=== PATIENT | female | born 1940 | race Caucasian/White ===

== ENCOUNTER 2017-12-28 16:33 | Inpatient (IN) | payer OTHER ==
[~2017-12-28] VITALS: Ht 160 cm; Wt 78.0 kg
--- NOTE | ~2017-12-28 | HC ---
[facility] [place] [address] CONSULTATION Name: INDIO LYNN Room #: 357-P [facility] IN ..#: [id number] Admission: 12/28/17 Attend Phys: Lemuel Geronimo MD Discharge: 12/31/17 Date of : 44 Report #: [id number] THIS REPORT FOR: //name// CC: Lemuel [facility] REASON FOR CONSULTATION: Elevated creatinine. REASON FOR PRESENTATION: Abdominal pain. HISTORY OF PRESENT ILLNESS: The patient is a 77-year-old with past medical history of hypertension. She was transferred from [facility] for abdominal pain and elevated lipase. On presentation, she was found to have an elevated creatinine. She is known to have hypertension, hyperlipidemia, what was described as parathyroid disorder in her medical record. She tells me that she sees a developer support engineer from [facility] with the last name of [facility]. She is not aware of her kidney levels. She was informed that she had an advanced chronic kidney disease. She reported to chronic nonsteroidal anti-inflammatory medications usage. As I have stated, she really does not recall her kidney levels. She is currently maintained on metoprolol and amlodipine for high blood pressure. PAST MEDICAL HISTORY: 1. Chronic kidney disease. 2. Hypertension. 3. Hyperlipidemia. 4. Questionable hyperparathyroidism. MEDICATIONS: 1. Metoprolol. 2. Norvasc. 3. Atorvastatin. ALLERGIES: PENICILLIN, BENADRYL. SOCIAL HISTORY: No drug or alcohol abuse. FAMILY HISTORY: Significant for hypertension. REVIEW OF SYSTEMS: GENERAL: No fever or chills. CARDIOVASCULAR: No chest pain or palpitation. PULMONARY: No cough or hemoptysis. GASTROINTESTINAL: As per the history of present illness. GENITOURINARY: No frequency, no urgency. MUSCULOSKELETAL: Occasional arthralgias, myalgias, back pain. SKIN: No rash or ulcerations. [facility] [address] [place] [address] CONSULTATION Name: INDIO LYNN Room #: 357-P [facility]#: [id number] Admission: 12/28/17 Attend Phys: Lemuel Geronimo MD Discharge: 12/31/17 Date of : 44 Report #: [id number] PHYSICAL EXAMINATION: GENERAL: Alert, oriented, in no apparent distress. VITAL SIGNS: Pulse rate 73, blood pressure 117/67. HEAD AND NECK: No jugular venous distention, no bruit, no thyromegaly. CHEST: Clear to auscultation bilaterally. CARDIOVASCULAR: Regular with no rub. ABDOMEN: Soft with slight epigastric tenderness. LOWER EXTREMITIES: Trace edema. LABORATORY DATA: Laboratory values reviewed. Hemoglobin 9.8. Chemistry from yesterday revealed a chloride of 109, carbon dioxide of 20, BUN of 51 and a creatinine of 3.0. She had an elevated AST, ALT. Lipase was also elevated. UA with trace protein. ASSESSMENT, IMPRESSION AND PLAN: 1. Chronic kidney disease. 2. Hypertension. 3. Proteinuria. 4. Elevated liver enzyme. 5. Elevated lipase. 6. It does look like that the patient carries a diagnosis of chronic kidney disease and she sees a developer support engineer in [place]. We will try to obtain those records. 7. Initiate very simple workup. 8. GI workup in progress for her elevated liver enzymes, possible pancreatitis and gastrointestinal bleeding. 9. Continue with the gentle hydration. 10. Avoid nephrotoxins, specifically Aleve. She has been taking this for an extended period of time. Repeat labs in the morning. 11. Strict input and output. 12. Defer management of other issues to the primary team. <ELECTRONICALLY SIGNED> By: Holly Emmanuel MD 12/31/17 [id number] Holly Emmanuel MD /nt
--- NOTE | ~2017-12-28 | P ---
[facility] [place] [address] PROCEDURE REPORT Name: INDIO LYNN Room #: 357-P [facility] IN M.R.#: [id number] Admission: 12/28/17 Attend Phys: Lemuel Geronimo MD Discharge: Date of : 44 Report #: [id number] THIS REPORT FOR: //name// CC: Lemuel Payne NP BRIEF HISTORY: The patient is a 77-year-old woman with marked anemia. She has been recently treated for iron deficiency with iron supplementation. In addition, she has been taking Aleve. PREOPERATIVE DIAGNOSES: Anemia and possible gastrointestinal bleeding. POSTOPERATIVE DIAGNOSES: 1. A 3 cm sliding type hiatus hernia. 2. Mild gastritis without ulcer or bleeding. 3. 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 MEDICATIONS: Deep sedation with propofol per anesthesia. SPECIMEN: 1. Biopsy small bowel, rule out celiac disease. 2. Biopsies of stomach, rule out H. pylori. 3. Biopsies of distal esophagus, rule out More esophagus. ESTIMATED BLOOD LOSS: 3 mL. PROCEDURE: EGD with biopsy. FINDINGS: Prior to propofol sedation, procedure of upper endoscopy discussed with the patient as well as potential risks and its complications. She indicates she understands and desires to proceed. DESCRIPTION OF PROCEDURE: With the patient in left lateral decubitus position, Fuji video endoscope was inserted in the cervical esophagus under direct vision without difficulty. Examination of this organ through its entire length revealed normal esophageal mucosa down the squamocolumnar junction. She does have about a 3 cm hiatus hernia. In addition, there is a questionable short segment of More's of no more than 2 cm with gastric type mucosa within the tubular lumen of the esophagus. It was smooth and flat. No ulcers, strictures or masses were seen. Multiple biopsies were obtained. Scope was advanced in the stomach, was examined on end view as well as retroflexed views. There was patchy erythema. In spite of the fact she takes Aleve on essentially daily basis, no ulcers or erosions were seen in the stomach. No blood or bleeding was seen within the stomach. Upon retroflexion, the hiatus hernia was seen. No other abnormalities were identified. Biopsies were obtained to exclude H. pylori. The pylorus, duodenal bulb and postbulbar duodenal sweep were [address] [address] PROCEDURE REPORT Name: INDIO LYNN Room #: 357-P [facility] IN ..#: [id number] Admission: 12/28/17 Attend Phys: Lemuel Geronimo MD Discharge: Date of : 44 Report #: [id number] inspected. She had intact and normal mucosa. Due to her anemia, biopsies obtained to evaluate for celiac disease. In addition, there was a small duodenal diverticulum. It was in the periampullary region, but the papilla was outside of the diverticulum. At that point, scope was withdrawn and careful circumferential views confirmed the above findings. The patient tolerated the procedure well. DISPOSITION: The patient with anemia and black stools. I do not find evidence of a source for upper gastrointestinal bleeding. We will follow up on biopsies obtained today. Some of this may be more chronic than acute. It is noted she has inflammatory changes in her colon. I would agree with a colonoscopy, but as long as she remains stable, I think it would be best to defer that for several weeks to be done as an outpatient after her sustained inflammatory changes have resolved. Her hemoglobin is likely stable at 7.4 this morning. I will discontinue her pantoprazole drip. <ELECTRONICALLY SIGNED> By: Andre Holcomb MD 12/30/17 1158 [id number] Andre Holcomb MD /nt
--- NOTE | ~2017-12-28 | S ---
[facility] [place] [address] SURGICAL PATH RPT PROCEDURE Name: INDIO BURCIAGA Room #: 357-P DIS IN M.R.#: [id number] Admission: 12/28/17 Date of : 44 Discharge: 12/31/17 Report #: [id number] Path Case #: [id number] PATHOLOGY REPORT COLLECTION DATE: 12/30/2017 RECEIVED DATE: 01/01/2018 SUBMITTING PHYS: Dr. Andre Holcomb OTHER PHYS: Lemuel Geronimo M.D. Mrs. Guardado Americo Payne SPECIMEN(S) RECEIVED: A.Bx small bowel B.Gastric bx's C.Bx distal esophagus * * * * * * * * * * * * FINAL DIAGNOSIS: A. Bx small bowel: - Duodenal mucosa with intact villous architecture and no increase in intraepithelial lymphocytes. B. Gastric bx's: - Chronic focally active gastritis, moderate. - An H. pylori immunostain is negative (Block B1; appropriately reactive control). C. Bx distal esophagus: - Intestinal metaplasia present (More's esophagus). - Negative for dysplasia. - Columnar junctional mucosa; acute and chronically inflamed. PATHOLOGIST: Eze Haro M.D. REPORT ELECTRONICALLY SIGNED BY: Eze Haro M.D. DATE/TIME: 01/02/2018 09:18 * * * * * * * * * * * * GROSS PATHOLOGY: A. Received in formalin labeled "Indio Burciaga, BX small bowel, history anemia, rule out celiac" and consists of 6 hagen mucosal biopsies ranging in size from 0.2 cm-0.4 cm. The specimen is totally submitted as A1. B. Received in formalin labeled "Indio Burciaga, gastric BX rule out H. pylori" and consists of 5 mucosal biopsies ranging in size from 0.2 cm-0.4 cm. The specimen is totally submitted as B1. C. Received in formalin labeled "Indio Burciaga, biopsy distal esophagus rule out More's" and consists of 2 hagen mucosal biopsies each averaging 0.2 cm. The specimen is totally submitted as C1. (RICH; 01/01/2018) [address] [place] [address] SURGICAL PATH RPT PROCEDURE Name: INDIO BURCIAGA Room #: 357-P DIS IN M.R.#: [id number] Admission: 12/28/17 Date of : 44 Discharge: 12/31/17 Report #: [id number] Path Case #: [id number] CLINICAL HISTORY: Pre-op: Anemia Postop: Hiatus hernia, gastritis INITIAL CPT CODE(S): A; 86726 B; 71644, 03076 C; 16986 Professional services performed by [facility] at [address], [place] [address] Technical services performed by [facility] at [address] [place] [address], [address] [address]. [facility] [address] [place] [id number] PHONE: [phone] DIRECTOR: Sharad Payne M.D. * * * END OF REPORT * * *
[2017-12-28 18:27] VITALS: BP 138/71
[2017-12-28 19:15] VITALS: BP 125/60
[2017-12-28 19:45] LABS: ABSOLUTE NEUTROPHILS 11.7 thou/uL (1.4-8.2); BASOPHILS 0.2 % (0.0-2.0); EOSINOPHILS 0.1 % (0.0-3.0); HEMATOCRIT 29.9 % (37.0-47.0); HEMOGLOBIN 9.8 gm/dL (12.0-15.0); LYMPHOCYTES 2.9 % (24.0-44.0); MCH 30.4 pg (26.0-34.0); MCHC 32.7 g/dL (28.0-37.0); MONOCYTES 5.2 % (1.0-8.0); PLATELET COUNT 197 thou/uL (150-400); POLYS 91.6 % (36.0-66.0); RBC 3.22 mil/uL (4.20-5.00); RDW 13.8 % (10.5-14.5); WBC 12.8 thou/uL (4.0-11.0)
[2017-12-28 19:51] LABS: CALCIUM 10.9 mg/dL (8.5-10.1); POTASSIUM 4.5 mmol/L (3.5-5.1)
[2017-12-28 19:53] LABS: MAGNESIUM 1.9 mg/dL (1.8-2.4)
[2017-12-28 19:56] LABS: ALBUMIN 3.3 g/dL (3.4-5.0); TOTAL BILIRUBIN 0.7 mg/dL (<0.1-1.0); TOTAL PROTEIN 6.8 g/dL (6.4-8.2)
[2017-12-28] MEDS ORDERED: NORVASC5 MG PO (21:54)
[2017-12-28] MEDS ORDERED: Iron PO (21:57)
[2017-12-28] MEDS ORDERED: ZANTAC 150MG T150 MG PO (21:58)
[2017-12-28] MEDS ORDERED: LOPRESSOR50 PO (21:58)
[2017-12-28] MEDS ORDERED: ZOCOR40 MG PO (21:59)
[2017-12-29] VITALS (7 sets, daily range): BP systolic 90–131; BP diastolic 49–71
[2017-12-29 00:01] LABS: HEMATOCRIT 25.9 % (37.0-47.0); HEMOGLOBIN 8.6 gm/dL (12.0-15.0)
[2017-12-29 01:50] LABS: URINE BILIRUBIN NEGATIVE (Negative); URINE BLOOD NEGATIVE (Negative); URINE CLARITY CLEAR; URINE COLOR YELLOW; URINE GLUCOSE-RANDOM* NEGATIVE (Negative); URINE KETONES NEGATIVE (Negative); URINE LEUKOCYTES NEGATIVE (Negative); URINE NITRITE NEGATIVE (Negative); URINE PROTEIN (DIPSTICK) TRACE (Negative); URINE SPECIFIC GRAVITY 1.025 (1.005-1.035); URINE UROBILINOGEN 0.2 E.U./dl (0.2-1.0)
[2017-12-29 07:24] LABS: URINE CREATININE-RANDOM* 83.5 mg/dL; URINE PROTEIN-RANDOM* 55.4 mg/dL (<11.9)
[2017-12-29 07:47] LABS: ABSOLUTE NEUTROPHILS 8.9 thou/uL (1.4-8.2); BASOPHILS 0.2 % (0.0-2.0); EOSINOPHILS 0.2 % (0.0-3.0); HEMATOCRIT 23.5 % (37.0-47.0); HEMOGLOBIN 7.8 gm/dL (12.0-15.0); LYMPHOCYTES 8.8 % (24.0-44.0); MCHC 33.3 g/dL (28.0-37.0); MCV 93.1 fL (80.0-100.0); MONOCYTES 6.3 % (1.0-8.0); PLATELET COUNT 150 thou/uL (150-400); POLYS 84.5 % (36.0-66.0); RBC 2.53 mil/uL (4.20-5.00); RDW 13.6 % (10.5-14.5); WBC 10.5 thou/uL (4.0-11.0)
[2017-12-29 08:01] LABS: ALBUMIN 2.6 g/dL (3.4-5.0); CALCIUM 10.3 mg/dL (8.5-10.1); CREATININE 2.6 mg/dL (0.6-1.0); DIRECT BILIRUBIN 0.2 mg/dL (<0.1-0.3); POTASSIUM 5.1 mmol/L (3.5-5.1); TOTAL BILIRUBIN 0.5 mg/dL (<0.1-1.0); TOTAL PROTEIN 5.7 g/dL (6.4-8.2)
[2017-12-29 10:47] LABS: % SATURATION 15 % (20-39); IRON 29 ug/dL (50-170); TIBC 191 ug/dL (250-450)
[2017-12-30 03:15] LABS: HAV IgM AB (ANTI-HAV IgM) Negative (Negative); HEPATITIS B SURFACE AG Negative (Negative); HEPATITIS C VIRUS AB <0.1 (0.0-0.9)
[2017-12-30 04:02] VITALS: BP 127/73
[2017-12-30 05:18] LABS: ABSOLUTE NEUTROPHILS 6.7 thou/uL (1.4-8.2); BASOPHILS 0.2 % (0.0-2.0); EOSINOPHILS 0.6 % (0.0-3.0); HEMATOCRIT 22.1 % (37.0-47.0); HEMOGLOBIN 7.4 gm/dL (12.0-15.0); LYMPHOCYTES 9.8 % (24.0-44.0); MCH 30.9 pg (26.0-34.0); MCHC 33.3 g/dL (28.0-37.0); MCV 92.8 fL (80.0-100.0); MONOCYTES 5.5 % (1.0-8.0); PLATELET COUNT 133 thou/uL (150-400); POLYS 83.9 % (36.0-66.0); RBC 2.38 mil/uL (4.20-5.00); RDW 13.7 % (10.5-14.5)
[2017-12-30 05:32] LABS: ALBUMIN 2.4 g/dL (3.4-5.0); CALCIUM 11.1 mg/dL (8.5-10.1); CREATININE 2.1 mg/dL (0.6-1.0); DIRECT BILIRUBIN 0.1 mg/dL (<0.1-0.3); PHOSPHORUS 2.8 mg/dL (2.5-4.9); TOTAL BILIRUBIN 0.4 mg/dL (<0.1-1.0); TOTAL PROTEIN 5.6 g/dL (6.4-8.2)
[2017-12-30 07:23] VITALS: BP 117/100
[2017-12-30 11:38] VITALS: BP 113/58
[2017-12-30 16:10] VITALS: BP 129/68
[2017-12-30 19:50] VITALS: BP 141/76
[2017-12-31 03:56] LABS: ABSOLUTE NEUTROPHILS 4.1 thou/uL (1.4-8.2); BASOPHILS 0.2 % (0.0-2.0); EOSINOPHILS 1.3 % (0.0-3.0); HEMATOCRIT 22.1 % (37.0-47.0); HEMOGLOBIN 7.4 gm/dL (12.0-15.0); LYMPHOCYTES 11.6 % (24.0-44.0); MCH 30.8 pg (26.0-34.0); MCHC 33.4 g/dL (28.0-37.0); MCV 92.1 fL (80.0-100.0); MONOCYTES 5.8 % (1.0-8.0); PLATELET COUNT 136 thou/uL (150-400); POLYS 81.1 % (36.0-66.0); RDW 13.8 % (10.5-14.5); WBC 5.1 thou/uL (4.0-11.0)
[2017-12-31 04:00] VITALS: BP 143/75
[2017-12-31 04:13] LABS: ALBUMIN 2.5 g/dL (3.4-5.0); CALCIUM 11.6 mg/dL (8.5-10.1); CREATININE 1.9 mg/dL (0.6-1.0); POTASSIUM 4.4 mmol/L (3.5-5.1); TOTAL BILIRUBIN 0.2 mg/dL (<0.1-1.0); TOTAL PROTEIN 5.9 g/dL (6.4-8.2)
[2017-12-31 06:18] LABS: CALCIUM 11.6 mg/dL (8.5-10.1); CREATININE 1.9 mg/dL (0.6-1.0)
[2017-12-31 07:45] VITALS: BP 135/79
[2017-12-31] MEDS ORDERED: PROTONIX40 M1 PO (08:57)
[2017-12-31] MEDS ORDERED: FLAGYL500 MG PO (08:57)
[2017-12-31] MEDS ORDERED: LEVAQUIN 500 M500 M2 PO (08:57)
[2017-12-31 09:23] VITALS: BP 135/79
[2017-12-31 12:09] LABS: IgA 232 mg/dL (64-422); IgG 777 mg/dL (700-1600); IgM 39 mg/dL (26-217)
[2017-12-31 14:06] LABS: CERULOPLASMIN 26.1 mg/dL (19.0-39.0)
[2018-01-01 15:10] LABS: KAPPA FREE LIGHT CHAINS 31.3 mg/L (3.3-19.4); KAPPA/LAMBDA RATIO 1.61 (0.26-1.65); LAMBDA FREE LIGHT CHAINS 19.5 mg/L (5.7-26.3)
[2018-01-03 08:08] LABS: GLOBULIN TOTAL 2.4 g/dL (2.2-3.9); M-SPIKE Not Observed g/dL (Not Observed)
== END 2017-12-31 11:08 | disposition home or self-care (01) | DRG 393 ==
LOC: 3W 16:33
PROVIDERS: Hospitalist; Nurse Practitioner
PROC: 0DB38ZX Excision of Lower Esophagus, Via Natural or Artificial Opening Endoscopic, Diagnostic (ICD-10-PCS; principal; 2017-12-30)
PROC: 0DB88ZX Excision of Small Intestine, Via Natural or Artificial Opening Endoscopic, Diagnostic (ICD-10-PCS; 2017-12-30)
PROC: 0DB68ZX Excision of Stomach, Via Natural or Artificial Opening Endoscopic, Diagnostic (ICD-10-PCS; 2017-12-30)
DX: K55.8 Other vascular disorders of intestine (principal); K85.90 Acute pancreatitis without necrosis or infection, unspecified; N17.9 Acute kidney failure, unspecified; A09 Infectious gastroenteritis and colitis, unspecified; E78.5 Hyperlipidemia, unspecified; H26.9 Unspecified cataract; H54.61 Unqualified visual loss, right eye, normal vision left eye; M19.90 Unspecified osteoarthritis, unspecified site; I12.9 Hypertensive chronic kidney disease with stage 1 through stage 4 chronic kidney disease, or unspecified chronic kidney disease; N18.9 Chronic kidney disease, unspecified; R80.9 Proteinuria, unspecified; K44.9 Diaphragmatic hernia without obstruction or gangrene; K29.70 Gastritis, unspecified, without bleeding; E83.52 Hypercalcemia; D69.6 Thrombocytopenia, unspecified; D50.9 Iron deficiency anemia, unspecified; Z88.0 Allergy status to penicillin; Z88.8 Allergy status to other drugs, medicaments and biological substances; Z98.51 Tubal ligation status; Z90.49 Acquired absence of other specified parts of digestive tract; Z79.899 Other long term (current) drug therapy; Z82.49 Family history of ischemic heart disease and other diseases of the circulatory system
CPT/HCPCS: 10879; 62110

== ENCOUNTER 2019-01-12 12:58 | Inpatient (IN) | payer OTHER ==
[~2019-01-12] VITALS: Ht 160 cm; Wt 76.0 kg
[2019-01-12 12:30] VITALS: BP 146/74
[~2019-01-12 12:58] MED LIST: FLAGYL500 MG PO; Iron PO; LEVAQUIN 500 M500 M2 PO; LOPRESSOR50 PO; NORVASC5 MG PO; PROTONIX40 M1 PO; ZANTAC 150MG T150 MG PO; ZOCOR40 MG PO
[2019-01-12] MEDS ORDERED: TYLENOL EXTRA500 MG PO (13:24)
[2019-01-12] MEDS ORDERED: VITAMIN D-32000 UNIT PO (13:26)
[2019-01-12] MEDS ORDERED: FERREX 150150 MG PO (13:27)
[2019-01-12 15:13] LABS: HEMATOCRIT 32.1 % (37.0-47.0); MCH 31.8 pg (26.0-34.0); MCHC 34.1 g/dL (28.0-37.0); MCV 93.1 fL (80.0-100.0); RBC 3.45 mil/uL (4.20-5.00); WBC 7.5 thou/uL (4.0-11.0)
[2019-01-12 15:22] LABS: CREATININE 1.8 mg/dL (0.6-1.0); POTASSIUM 3.7 mmol/L (3.5-5.1)
[2019-01-12 15:27] LABS: ALBUMIN 3.7 g/dL (3.4-5.0); TOTAL BILIRUBIN 0.3 mg/dL (<0.1-1.0); TOTAL PROTEIN 7.2 g/dL (6.4-8.2)
[2019-01-12 17:02] VITALS: BP 141/78
[2019-01-12 20:30] VITALS: BP 127/72
[2019-01-13 04:00] VITALS: BP 131/77
[2019-01-13 06:24] LABS: ABSOLUTE NEUTROPHILS 3.3 thou/uL (1.4-8.2); BASOPHILS 0.3 % (0.0-2.0); EOSINOPHILS 3.3 % (0.0-3.0); HEMATOCRIT 29.3 % (37.0-47.0); HEMOGLOBIN 9.7 gm/dL (12.0-15.0); LYMPHOCYTES 16.9 % (24.0-44.0); MCHC 33.1 g/dL (28.0-37.0); MCV 93.9 fL (80.0-100.0); MONOCYTES 8.4 % (1.0-8.0); PLATELET COUNT 163 thou/uL (150-400); POLYS 71.1 % (36.0-66.0); RBC 3.11 mil/uL (4.20-5.00); RDW 12.8 % (10.5-14.5); WBC 4.6 thou/uL (4.0-11.0)
[2019-01-13 06:39] LABS: ALBUMIN 3.4 g/dL (3.4-5.0); CALCIUM 8.9 mg/dL (8.5-10.1); CREATININE 1.6 mg/dL (0.6-1.0); POTASSIUM 4.5 mmol/L (3.5-5.1); TOTAL BILIRUBIN 0.4 mg/dL (<0.1-1.0); TOTAL PROTEIN 6.6 g/dL (6.4-8.2)
--- NOTE | 2019-01-13 07:14 | NUR ---
ADMISSION NOTED; DIRECT ADMIT FROM [facility]. ORIENTED TO ROOM AND FACILITY ROUTINE, CALL LIGHT AND BATHROOM PROTOCOL. ENCOURAGED TO CALL WITH TRASFERS TO BATHROOM. SHE IS ALERT ORIENTED X4. DOES NOT SEEM TO BE IN PAIN INITIALLY BUT THEN EVENTUALLY SHE ABDOMINAL PAIN OF ABOUT A 10. SHE WILL BE KEPT NPO UNTIL DR YATES REVIEWS IF SHE WILL BE HAVE SURGERY OR NOT. UPDATED FAMILY ABOUT STATUS.
--- NOTE | 2019-01-13 07:40 | NUR ---
ASSUMED CARE AT 1900, ASSESSMENT COMPLETED. PT C/O GENERALIZED ABD PAIN THAT RADIATES TO BACK, ABD IS DISTENDED AND FIRM WITH HYPOACTIVE BOWEL SOUNDS THAT ARE MARGINALLY MORE ACTIVE IN UPPER QUADS. DENIES NAUSEA OR SOB. PT REQUESTED PAIN MEDS ALMOST EVERY FOUR HOURS, PER PRN SCHEDULE. ABLE TO SLEEP MOST OF THE NIGHT. SR WITH 1ST DEG BLOCK ON TELE, HR IN 70'S. C/O BURNING IN IV IN LEFT HAND, SLIGHT SWELLING NOTED; DC-D IV AND RESTARTED IV IN LEFT FOREARM, FLUIDS AND ABX RESUMED. NO OTHER CONCERNS, SHIFT REPORT GIVEN AT 0700.
[2019-01-13 08:12] VITALS: BP 133/68
[2019-01-13 12:24] VITALS: BP 146/75
[2019-01-13 15:49] VITALS: BP 153/70
--- NOTE | 2019-01-13 17:55 | NUR ---
PT ALERT AND ORIENTED TIMES FOUR. VSS, 93%RA, SR ON TELE, IVF INFUSING PER ORDER. C/O ABD PAIN PRN PAIN MEDIACTIONS GIVEN WITH GOOD RELEIF. PT DENIES ANY N/V. PT UP TO BSC WITH STANDBY ASSIST. FAMILY AT BEDSIDE THIS AFTERNOON. PT SLOWLY PROGRESSING TOWRADS POC GOALS.
[2019-01-13 19:49] VITALS: BP 114/64
[2019-01-14 04:36] VITALS: BP 124/59
[2019-01-14 05:22] LABS: HEMATOCRIT 27.8 % (37.0-47.0); HEMOGLOBIN 9.1 gm/dL (12.0-15.0); MCH 30.5 pg (26.0-34.0); MCHC 32.5 g/dL (28.0-37.0); MCV 93.7 fL (80.0-100.0); RBC 2.97 mil/uL (4.20-5.00); RDW 12.8 % (10.5-14.5); WBC 4.7 thou/uL (4.0-11.0)
[2019-01-14 05:34] LABS: CALCIUM 8.6 mg/dL (8.5-10.1); CREATININE 1.8 mg/dL (0.6-1.0); POTASSIUM 4.9 mmol/L (3.5-5.1)
--- NOTE | 2019-01-14 06:12 | NUR ---
FOLLOWING POC WITH KEEPING PT NPO. IVF AND IVPB ANTIBIOTICS PER POC. PT COMPLAINS OF ABDOMINAL PAIN. IV MORPHINE GIVEN 2X OVER SHIFT. PT STATES SHE IS NOT HAVING ANY N/V. VSS AND CONTINUING HOURLY ROUNDING.
[2019-01-14 07:53] VITALS: BP 118/65
--- NOTE | 2019-01-14 10:34 | NUR ---
INITIAL ASSESSMENT: SW reviewed chart and spoke with nursing. Pt was admitted from home. Pt to have CT scan today. SW met with pt at bedside. Introduced role of SW. Pt is alert/orientated x 4. Pt reports she lives at home with her in [place]. Prior to admission, pt was independent with ADLs. No use of DME. No hx of HH services or SNF/Rehab placement. Pt's PCP is Debby Payne, who is a nurse practitioner. Pt is currently on O2 and was not on O2 prior to admission. Plan is for pt to d/c home when medically stable. SW is following to assist as needed with discharge planning.
[2019-01-14 12:25] VITALS: BP 122/74
[2019-01-14 16:07] VITALS: BP 119/63
[2019-01-14 19:45] VITALS: BP 117/63
--- NOTE | 2019-01-14 20:21 | NUR ---
PATIENT REMAINS NPO SHE CONT TO HAVE ABDOMINAL PAIN. SHE ONLY ASK FOR PAIN MEDICATION ONCE THROUGH THE SHIFT. SHE IS ALERT ORIENTED X4. CONT OF BOWEL AND BLADDER.
[2019-01-15 04:27] VITALS: BP 113/69
--- NOTE | 2019-01-15 05:28 | NUR ---
PATIENT IS ALERT AND ORIENTED. PATIENT IS SBA TO THE BSC. PATIENT RECIVED TYLENOL TWICE FOR TEMPATURE. PATIENT IS ON 2L NC. PATIENTS LBM WAS THE 16TH. PATINET IS NPO. NO N/V/D. PATIENT IS RESTING COMFORTABLEY IN BED. WCM. PATIENT IS PROGRESSING TO GOALS
[2019-01-15 07:25] VITALS: BP 130/62
[2019-01-15 11:11] LABS: ABSOLUTE NEUTROPHILS 2.8 thou/uL (1.4-8.2); BASOPHILS 0.2 % (0.0-2.0); EOSINOPHILS 3.3 % (0.0-3.0); HEMATOCRIT 28.8 % (37.0-47.0); HEMOGLOBIN 9.9 gm/dL (12.0-15.0); LYMPHOCYTES 10.9 % (24.0-44.0); MCH 31.9 pg (26.0-34.0); MCHC 34.3 g/dL (28.0-37.0); MCV 92.9 fL (80.0-100.0); MONOCYTES 8.5 % (1.0-8.0); PLATELET COUNT 132 thou/uL (150-400); POLYS 77.1 % (36.0-66.0); WBC 3.7 thou/uL (4.0-11.0)
[2019-01-15 11:23] LABS: CALCIUM 9.2 mg/dL (8.5-10.1); CREATININE 1.6 mg/dL (0.6-1.0); POTASSIUM 4.2 mmol/L (3.5-5.1)
[2019-01-15 12:40] VITALS: BP 128/64
[2019-01-15 16:45] VITALS: BP 123/66
--- NOTE | 2019-01-15 17:05 | NUR ---
SW reviewed chart and spoke with attending physician. Pt to have colonoscopy later this week. Plan is for pt to d/c home when medically stable. SW is following to assist as needed with discharge planning.
--- NOTE | 2019-01-15 17:30 | NUR ---
PT ASSESSED AT START OF SHIFT. STARTED ON CLEAR LIQUIDS AND DOING WELL. AMBULATED W/ THERAPY IN HALLS. GI . PLANNING ON COLONOSCOPY THIS ADMISSION. REPORT GIVEN TO SICU RN AND PT TO BE TRANSFERRED TO 221
[2019-01-15 18:53] VITALS: BP 124/74
--- NOTE | 2019-01-16 05:04 | NUR ---
PATIENT ALERT AND ORIENTED X4. UP TO BATHROOM WITH SBA. STEADY ON FEET. SHE FELT LIKE SHE MIGHT HAVE A FEVER, TOOK TEMP AND IT WAS 98.7. C/O PAIN IN ABD, MORPHINE IVP WAS GIVEN. SAYS SHE HAS HEARD BAD THINGS ABOUT VICODINAND WAS AFRAID TO TAKE IT. SHE ALSO HAD A DUEÑAS SO TYLENOL WAS GIVEN. IS BLIND IN R EYE. DENIES N/V. SLEPT MOST OF NIGHT.
[2019-01-16 06:23] LABS: HEMOGLOBIN 9.1 gm/dL (12.0-15.0); MCH 31.1 pg (26.0-34.0); MCHC 33.8 g/dL (28.0-37.0); MCV 92.2 fL (80.0-100.0); RBC 2.93 mil/uL (4.20-5.00); RDW 12.4 % (10.5-14.5); WBC 3.5 thou/uL (4.0-11.0)
[2019-01-16 08:06] VITALS: BP 150/85
--- NOTE | 2019-01-16 11:56 | NUR ---
SW reviewed chart and spoke with nursing and attending physician. Pt [facility] and is progressing towards goals for discharge. Colonoscopy planned for Monday per GI. PT/OT working with pt. Plan is for pt to discharge home when medically stable. DEV is following to assist as needed with discharge planning.
[2019-01-16 17:58] VITALS: BP 131/80
--- NOTE | 2019-01-16 19:32 | NUR ---
ASSUMED PT CARE AT 0700H. PT A&O X4. PT STATES PAIN ON L ABD WITH RELIEF FROM MED AT /10. PT ADVANCED DIET TO SOFT. PT TOLERATES MEALS. PT THIS EVENING STATED N/V. PT STATED RELIEF AFTER VOMITING. PT SCHEDULED FOR BOWEL PREP TOMORROW 01/17/19 AT NOON AND RESUME CLEAR LQ DIET. PT SCHEDULED Monday01/18/19 FOR COLONOSCOPY. PT AMBULATES ON STAND BY ASSIST. PT L FOREARM IV C/D/I. PT INFUSING FLUIDS CONT. PT STATES CONTROL LOW BACK PAIN FROM LIDOCAINE PATCH. PT CALLS APPROPRIATELY AND CONTINUES TO BE MONITORED FOR SAFETY.
[2019-01-16 20:21] VITALS: BP 132/73
--- NOTE | 2019-01-17 04:45 | NUR ---
PT ALERT/ORIENTED X4, UP WITH STAND BY ASSIST, IV FLUID AND IV ANTIBIOTICS TO LEFT FOREARM, ON ROOM AIR, DENIES PAIN, LIDODERM PATCH REMOVED, SKIN INTACT, NO BM PASSED, PT REPORTED PASSING GAS, FOR COLONOSCOPY TOMORROW, AWARE SHE WILL BE ON CLEAR LIQUID DIET TODAY, HOURLY ROUNDING, MONITORED.,
[2019-01-17 09:01] VITALS: BP 145/82
--- NOTE | 2019-01-17 09:07 | NUR ---
ASSUMED PT CARE AT 0700. ASSESSMENT COMPLETED AND IS CHARTED. VSS. PT REPORTS SOME NAUSEA/VOMITTING LAST NIGHT BUT BELIEVES IT WAS THE FOOD. DENIES PAIN AT THIS TIME. PT IS AWAKE, ALERT/ORIENTED X4, SITTING UP ON SIDE OF BED. NO NEW CONCERNS OR COMPLAINTS AT THIS TIME. WILL BEGIN BOWEL PREP AT NOON ORDERED. WILL CONTINUE WITH CURRENT CARE.
[2019-01-17 09:29] LABS: HEMATOCRIT 30.4 % (37.0-47.0); HEMOGLOBIN 10.1 gm/dL (12.0-15.0); MCH 30.9 pg (26.0-34.0); MCHC 33.3 g/dL (28.0-37.0); MCV 92.8 fL (80.0-100.0); RBC 3.27 mil/uL (4.20-5.00); RDW 12.7 % (10.5-14.5); WBC 3.1 thou/uL (4.0-11.0)
[2019-01-17 09:44] LABS: CALCIUM 9.3 mg/dL (8.5-10.1); CREATININE 1.4 mg/dL (0.6-1.0); MAGNESIUM 1.8 mg/dL (1.8-2.4); POTASSIUM 4.1 mmol/L (3.5-5.1)
--- NOTE | 2019-01-17 13:50 | NUR ---
PT DOING WELL THIS SHIFT. WALKED LYMAN WITH THERAPY AND TOLERATED WELL. STARTED PT ON MIRALAX BOWEL PREP. BEDSIDE COMMODE PROVIDED. NO NEW CONCERNS AT THIS TIME. WILL CONTINUE CURRENT CARE AND BOWEL PREP.
[2019-01-17 18:54] VITALS: BP 117/65
--- NOTE | 2019-01-18 01:17 | NUR ---
ASSUMED PT CARE 1900. PT ALERT AND ORIENTED. REASSESSMENT COMPLETED. PT REPORTS NAUSEA/VOMITING X3. NAUSEA RELEIVED WITH MEDICATION. UNABLE TO COMPLETE BOWEL PREP DUE TO N/V, LAST OBSERVED STOOL COMPLETELY LIQUID. PT COMPLAINS OF ABDOMINAL PAIN AND BACK PAIN, CONTROLED WITH MEDICATION. IV DRESSING C/D/I, NO SIGNS OF INFILTRATION. PT PROVIDED WITH WET WASH CLOTH OVER FOREHEAD. CONTINUING TO MONITOR. CALL LIGHT AND PERSONAL BELONIGNS WITHIN REACH. WILL CONTINUE POC UNTIL EOS.
[2019-01-18 06:55] LABS: HEMATOCRIT 29.6 % (37.0-47.0); HEMOGLOBIN 9.7 gm/dL (12.0-15.0); MCH 30.4 pg (26.0-34.0); MCHC 32.9 g/dL (28.0-37.0); MCV 92.5 fL (80.0-100.0); RBC 3.2 mil/uL (4.20-5.00); WBC 3.7 thou/uL (4.0-11.0)
[2019-01-18 07:41] LABS: CALCIUM 8.8 mg/dL (8.5-10.1); CREATININE 1.3 mg/dL (0.6-1.0); MAGNESIUM 1.6 mg/dL (1.8-2.4); POTASSIUM 3.6 mmol/L (3.5-5.1)
[2019-01-18 09:00] VITALS: BP 139/79
--- NOTE | 2019-01-18 10:02 | NUR ---
ASSUMED PT CARE AT 0700. ASSESSMENT COMPLETED AND IS CHARTED. PT HAD ROUGH NIGHT WITH NAUSEA/VOMITTING DURING BOWEL PREP. PT DENIES PAIN OR NAUSEA AT THIS TIME. RESTING QUIETLY IN BED. STOOL IS LIQUID, BLACK WITH FLECKS OF STOOL. PT UNABLE TO FINISH PREP LAST NIGHT, PRE-OP NOTIFIED. VITAL SIGNS ARE STABLE. PT IS ALERT/ORIENTED X4. AWAITING COLONOSCOPY AND WILL CONTINUE WITH CURRENT CARE.
--- NOTE | 2019-01-18 10:26 | NUR ---
Nutrition: pt admit with abdominal pain, N/V, colitis with pneumatosis of cecum. NPO/liquids several days over admit, tolerated soft foods one day. Now NPO for colonscopy. Pt reports usual appetite recently and usually eats smaller more frequent meals. No significant weight changes recently reported. Request new weight, no weight since admit. Follow for timely diet advancement.
--- NOTE | 2019-01-18 10:54 | NUR ---
PT TRANSFERRED TO ENDOSCOPY FOR COLONOSCOPY ACCOMPANIED BY PRE-OP STAFF AND SON.
--- NOTE | 2019-01-18 10:55 | NUR ---
SW reviewed chart and spoke with nursing and attending physician. Pt is currently off the unit having colonoscopy. Plan is for pt to return home when medically stable. No SW needs identified at this time, but is available to assist should needs arise.
--- NOTE | 2019-01-18 14:21 | NUR ---
RECEIVED PT BACK FROM ENDOSCOPY. VSS. PT AWAKE, ALERT/ORIENTED X4. PT ATTEMPTING FULL LIQUID DIET, STATES SHE ISN'T VERY HUNGRY. IVF STARTED PREVIOUSLY ORDERED. WILL CONTINUE WITH CURRENT CARE.
[2019-01-18 14:23] VITALS: BP 167/95
[2019-01-18 19:33] VITALS: BP 131/69
--- NOTE | 2019-01-19 02:43 | NUR ---
A/O, calm and cooperative; c/o nausea, no vomitting, medication given and worked; IVF continues; c/o pain in abdomen, back and legs, pain medication given and worked; vss, afebrile; lab reviewed. Patient lying in bed with eyes closed, will keep monitoring.
[2019-01-19 07:11] VITALS: BP 122/58
--- NOTE | 2019-01-19 13:10 | NUR ---
ASSUMED CARE OF PATIENT THIS MORNING. PATIENT IS A&0X4. SHE IS UP AD AURA. CLEAR BREATH SOUNDS, REGULAR HEART RHYTHM, NO COUGH. LAST BOWEL MOVEMENT WAS YESTERDAY. SHE HAD SOME NAUSEA AND VOMITING. ZOFRAN WAS GIVEN AT 0845 AND PATIENT STILL HAD SOME NAUSEA. DR. LOZOYA LATER WROTE AN ORDER FOR COMPAZINE TO BE GIVEN FOR FURTHER NAUSEA/VOMITING. PATIENT WAS ORIGINALLY ON FULL LIQUIDS AND DR. DELGADO CHANGED HER DIET TO NPO. IF FURTHER NAUSEA OR VOMITING OCCURS HE WANTS AN NG TUBE TO BE INSERTED TO HELP DECOMPRESS THE PATIENTS ABDOMEN. SURGERY WILL POSSIBLY BE SCHEDULED FOR NEXT MONDAY. SHE LATER HAD SOME PAIN RATED 7/10 AND GIVEN DILAUDID, WHEN REASSESSED SHE WAS SLEEPING. PATIENT IS CURRENTLY RESTING IN BED WITH CALL LIGHT WITHIN REACH. SHE CALLS OUT APPROPRIATELY FOR ASSISTANCE.
--- NOTE | 2019-01-19 16:18 | NUR ---
PATIENTS D5 1/2 NS KCL 20 MEQ/1000ML DC'D AND CHANGED TO PPN 1000ML @ 80ML/HR.
[2019-01-19 19:35] VITALS: BP 122/74
--- NOTE | 2019-01-20 06:26 | NUR ---
Pt a/o x 4. RA. VSS. No N/V reported. C/o LLQ abdominal pain x 1, pain med given per order. Up with standby as needed. Pt resting in bed comfortably with eyes closed at this time. No apparent distress noted. Fall precautions maintained. Call light within reach. Will continue to monitor.
[2019-01-20 07:07] LABS: HEMATOCRIT 27.3 % (37.0-47.0); HEMOGLOBIN 9.1 gm/dL (12.0-15.0); MCH 30.6 pg (26.0-34.0); MCHC 33.2 g/dL (28.0-37.0); MCV 92.2 fL (80.0-100.0); RBC 2.96 mil/uL (4.20-5.00); RDW 12.6 % (10.5-14.5); WBC 3.6 thou/uL (4.0-11.0)
[2019-01-20 07:55] VITALS: BP 145/61
--- NOTE | 2019-01-20 10:04 | NUR ---
PATIENT CARE WAS ASSUMED AT 0715.PATIENT IS ALERT AND ORIENTED X4.PATIENT IS RESTING IN BED, WITH IV FLUIDS INFUSING.PT IS CURRENTLY NPO TO HELP WITH DECOMPRESSION.PATIENT HAS HAD NAUSEA/VOMITING YESTERDAY BUT HAS NO COMPLAINS OF ANY TODAY.NO PO MEDS WERE GIVEN THIS MORNING.PT WAS CONCERN ABOUT WHEN SHE MAY BE HAVING HER SURGERY.PT HAS CALL LIGHT, PHONE, AND PERSONAL BELONGINGS WITHIN REACH.
[2019-01-20 19:30] VITALS: BP 149/72
[2019-01-21 06:29] LABS: HEMATOCRIT 27.8 % (37.0-47.0); HEMOGLOBIN 9.6 gm/dL (12.0-15.0); MCH 31.6 pg (26.0-34.0); MCHC 34.4 g/dL (28.0-37.0); RBC 3.03 mil/uL (4.20-5.00); RDW 12.6 % (10.5-14.5); WBC 4.5 thou/uL (4.0-11.0)
[2019-01-21 06:30] LABS: CALCIUM 9.2 mg/dL (8.5-10.1); CREATININE 1.3 mg/dL (0.6-1.0); POTASSIUM 4.9 mmol/L (3.5-5.1)
[2019-01-21 07:30] VITALS: BP 113/54
--- NOTE | 2019-01-21 10:22 | NUR ---
Nutrition: REC consider adding 250 mL 20% lipids daily to current PPN order. Will meet 70% kcal needs, 100% protein needs. RD to monitor.
--- NOTE | 2019-01-21 13:12 | NUR ---
ASSUMED CARE OF PATIENT THIS MORNING. PATIENT IS A&OX4. SHE IS UP AD AURA. SHE HAS PPN RUNNING AT 80ML/HR. SHE IS ON A CLEAR LIQUID DIET AND TOLERATING WELL W/NO NAUSEA OR VOMITING. PHYSICIAN STARTED PATIENT ON A CLEAR LIQUID SUPPLEMENT WELL. SHE DOES NOT COMPLAIN OF ANY PAIN. IV IN THE L. FOREARM INFILTRATED THIS MORNING AND A NEW ONE WAS STARTED ON THE L. AC. PATIENT WILL HAVE NO BOWEL PREP, SURGERY WILL POSSIBLY BE SCHEDULED FOR PATIENT ON MONDAY. PATIENT HAS HAD SMALL BOWEL MOVEMENTS AND STILL PASSING FLATUS. ABDOMEN IS SOFT AND ROUND. PATIENT CALLS OUT APPROPRIATELY FOR NEEDED ASSISTANCE. CALL LIGHT WITHIN REACH. SHE IS CURRENTLY RESTING IN BED.
[2019-01-21 18:48] VITALS: BP 130/68
[2019-01-21 22:23] VITALS: BP 130/68
--- NOTE | 2019-01-22 04:42 | NUR ---
Patient remains A&Ox4; swallows meds whole w/o difficulty. Remains cont. B&B; ambulates independenyl w/ steady gait. SL noted to LAC; infusing PPN @ 80mlhr w/o difficulty. Last BM 01/21/2019, per pt. Remains on clear liquid diet. No c/o N/V. Patine denies pain or discomfort. No s/s of acute distress noted. PO fluids encouraged. Patient in bed w/ call light/desired belongings within reach. Will continue to monitor.
[2019-01-22 09:00] VITALS: BP 113/54
--- NOTE | 2019-01-22 10:35 | NUR ---
ASSUMED PT CARE AT 0700. ASSESSMENT COMPLETED AND IS CHARTED. VSS. PT IS AWAKE, ALERT/ORIENTED X4. DENIES PAIN OR NAUSEA AT THIS TIME. TOLERATING CLEAR LIQUIDS WELL. PPN INFUSING TO LEFT AC IV SITE. SITE IS ASYMPTOMATIC. WILL CONTINUE WITH CURRENT CARE.
--- NOTE | 2019-01-22 17:58 | NUR ---
PT DID WELL THIS SHIFT. TOLERATING CLEAR LIQUIDS AND MAG CITRATE WELL. NO NAUSEA/VOMITTING. PAIN HAS BEEN WELL CONTROLLED WITHOUT MEDS. LAST BM WAS LOOSE, SMALL AND BLACK. PPN STILL INFUSING TO LEFT AC SITE. WILL CONTINUE WITH CURRENT CARE AND MAKE NPO AT MIDNIGHT.
[2019-01-22 19:15] VITALS: BP 122/72
[2019-01-22 21:10] VITALS: BP 122/72
[2019-01-23] VITALS (9 sets, daily range): BP systolic 112–154; BP diastolic 63–89
--- NOTE | 2019-01-23 03:40 | NUR ---
Patient remains A&Ox4; Swallows meds whole w/o difficulty. Remains cont. B&B. Ambulates independently. IV noted to L wrist; infusing PPN w/o difficulty. Abd. soft/nontender. Patient remains NPO/on bowel prep for pending surgery. Loose stools x3 noted. Lidoderm patch noted to lower back.Patient denies pain or discomfort. No s/s of acute distress noted. Patient asleep in bed w/ call light/desired belongings within reach. Will continue to monitor.
[2019-01-23 05:52] LABS: HEMATOCRIT 28.4 % (37.0-47.0); HEMOGLOBIN 9.4 gm/dL (12.0-15.0); MCH 30.7 pg (26.0-34.0); MCHC 33.1 g/dL (28.0-37.0); MCV 92.8 fL (80.0-100.0); RBC 3.06 mil/uL (4.20-5.00); RDW 12.5 % (10.5-14.5); WBC 4.8 thou/uL (4.0-11.0)
[2019-01-23 06:02] LABS: ALBUMIN 3.1 g/dL (3.4-5.0); CALCIUM 8.9 mg/dL (8.5-10.1); CREATININE 1.5 mg/dL (0.6-1.0); POTASSIUM 4.4 mmol/L (3.5-5.1); TOTAL BILIRUBIN 0.3 mg/dL (<0.1-1.0); TOTAL PROTEIN 6.4 g/dL (6.4-8.2)
--- NOTE | 2019-01-23 08:45 | HC ---
[facility] [place] [address] CONSULTATION Name: INDIO LYNN Room #: 221-P ADM IN M.R.#: [id number] Admission: 01/12/19 ������������������ Attend Phys: Deangelo Kim MD Discharge: ������������������ Date of : 44 Report #: [id number] THIS REPORT FOR: //name// CC: Deangelo Jensen MD [facility] Abner Maldonado MD DATE OF SERVICE: 01/13/2019 HISTORY OF PRESENT ILLNESS: The patient is a 78-year-old female who began having abdominal pain approximately a week ago, became progressively more significant. She was evaluated at [facility] and had a CT scan of the abdomen that showed pneumatosis involving her cecum. She has never had a colonoscopy. She denies any blood in her stools, although she does report black stools; however, she has been on iron. Supposedly, she has had a history of anemia for 2 years. No previous history of GI bleed that she is aware of. No previous history of upper endoscopy. She denies any nausea or vomiting. Her weight has been stable. She denies any bright red blood per rectum. She denies any diarrhea or constipation in general. There is no family history of colon cancer. The patient was transferred to [facility] for further evaluation and Dr. Maldonado was following. A repeat CT scan was performed here yesterday. This again showing pneumatosis involving the proximal colon from the level of the cecum to the proximal transverse colon without significant pericolonic soft tissue stranding. There is dilation of the colon; however, it is less degree of distention compared to the previous CT scan. There is also concern for a short segment of stricture or mass at the level of the distal descending colon and proximal sigmoid colon. The patient is currently afebrile. Her white count is normal at 4.6 and her lactic acid level was normal at 0.9. She describes a constant type of pain that is low. She states this is approximately 7-9/10 scale. She has now been started on IV antibiotics. She is passing gas. Her last bowel movement was yesterday and she described it as small. She denies any chest pain or shortness of breath currently. PAST MEDICAL HISTORY: Hypertension, hyperparathyroidism, had a parathyroidectomy in 2018, previous cataract surgery, tubal ligation, history of arthritis and she is blind in the right eye. MEDICATIONS ON ADMISSION: Norvasc, Lopressor, Zocor, Tylenol, vitamin D and iron. REVIEW OF SYSTEMS: As per HPI. FAMILY HISTORY: Negative for colon cancer or inflammatory bowel disease. SOCIAL HISTORY: She denies any tobacco use. She denies any alcohol use. [address] [address] CONSULTATION Name: INDIO LYNN Room #: 221-P [facility] IN M.R.#: [id number] Admission: 01/12/19 ������������������ Attend Phys: Deangelo Kim MD Discharge: ������������������ Date of : 44 Report #: [id number] PHYSICAL EXAMINATION: VITAL SIGNS: Temperature is 98.3, pulse 75, blood pressure 133/68 and respiratory rate is 15. GENERAL: She is alert and oriented x 3, in no acute distress. HEENT: Sclerae nonicteric. Oropharynx clear. NECK: Supple, without lymphadenopathy. CARDIOVASCULAR: Regular rate and rhythm. CHEST: Clear to auscultation bilaterally. ABDOMEN: Soft. She is minimally distended. She is tender to palpation in the lower quadrants bilaterally. Mildly tender. Positive bowel sounds. EXTREMITIES: No cyanosis, clubbing or edema. LABORATORY DATA: Sodium 142, potassium 4.5, chloride 109, bicarbonate 23, BUN 25, creatinine 1.6 and glucose 90. AST 26 and lipase 226, total bilirubin 0.4, alkaline phosphatase 95, ALT is 16, albumin 3.4 and lactic acid level 0.9. Her previous lactic acid yesterday as well as 1.2. Iron studies from December of last year show iron level of 29, TIBC is 191 and percent sat is 15. WBC today is 4.6, hemoglobin 9.7, MCV is 93.9 and platelet count is 163. ASSESSMENT AND PLAN: Abdominal pain, abnormal CT showing possible pneumatosis in the cecum. This may be secondary to ischemia; however, at this time, her white blood cell count is normal. She is afebrile. She also has a possible strictured area or mass within the descending and sigmoid colon. The patient does need a colonoscopy. The question is the timing of one to proceed at this time, she is stable. Her white count is normal. I would recommend continuing IV antibiotics and monitoring the patient closely. Hopefully, if she improves, could consider colonoscopy in the next few weeks as an outpatient for further evaluation. If, however, she becomes worse or starts bleeding, may need to consider an emergent endoscopy or surgery. I spoke with Dr. Maldonado as well. I explained to the patient at this time and there is increased risk for possible perforation with the CT findings. We will continue to follow closely. Thank you for allowing me to participate in her care. ��������������������������������������������� <ELECTRONICALLY SIGNED> ���������������������������������������� By: Tao Gil MD ��������������������������������������������� 01/23/19 0845 [id number] Tao Gil MD /nt
--- NOTE | 2019-01-23 09:57 | NUR ---
SW reviewed chart and spoke with nursing. Pt is scheduled to have surgery today. Pt with new colon mass. Oncology consulted. Biopsy pending. Pt is from home with family. DEV is following to assist as needed with discharge planning.
--- NOTE | 2019-01-23 11:20 | NUR ---
Nutrition: PPN only meeting 39% kcal needs, REC add daily lipids to meet 70% of kcal needs or consider use of TPN standard at 70 mL/hr to best meet needs. Pt now with malnutrition due to extended inadequate nutrition over admit.
--- NOTE | 2019-01-23 12:39 | NUR ---
PT UNDERWENT GI SURGERY TODAY; PT ON HOLD FOR O.T. NEW DOCTOR ORDERS ARE NEEDED WHEN/IF APPROPRIATE.
--- NOTE | 2019-01-23 13:00 | NUR ---
ASSUMED CARE OF PATIENT THIS MORNING. PATIENT IS A&OX4. SHE IS UP AD AURA. PATIENT HAD AN MRI THIS MORNING, AND CHECK LIST WAS FILLED OUT PRIOR TO PROCEDURE. NO ABNORMAL FINDINGS UPON ASSESSMENT. SHE LEFT THE UNIT THIS MORNING BEFORE NOON FOR HER SCHEDULED SURGERY. PATIENT HAS BEEN NPO SINCE LAST NIGHT. THE ONLY MEDICATION GIVEN TO PATIENT WAS METROPROLOL WITH A SIP OF WATER. PATIENT ALSO HAD A TYPE & SCREEN PRIOR TO HER PROCEDURE, SINCE HER HGB WAS 9.4. PATIENT DID NOT COMPLAIN OF ANY PAIN THIS MORNING. SHE HAD HER BOWEL PREP LAST NIGHT WHICH SHE REPORTED HAVING LOOSE STOOLS THAT WERE STOOL BROWN IN COLOR. PATIENT'S FAMILY ARRIVED TO UNIT TO ESCORT PATIENT TO PRE-OP. PPN WAS STOPPED AND SHE WAS SALINE LOCKED. CONSENT FORMED SIGNED AND DATED BY PATIENT, LOCATED IN CHART.
--- NOTE | 2019-01-23 13:32 | NUR ---
I AGREE WITH NURSING ASSESSMENT DONE BY BO/WILMAN.
[2019-01-24] VITALS (8 sets, daily range): BP systolic 100–139; BP diastolic 60–73
--- NOTE | 2019-01-24 08:02 | NUR ---
ASSUMED PT CARE AT 0700. PT DROWSY, AROUSABLE TO NAME. ALERT/ORIENTED X4. PT REPORTS PAIN TO ABDOMEN 7/10. DENIES NAUSEA. IV TO LEFT AC REMOVED FOR PHLEBITIS. IV TO RIGHT WRIST PATENT, PPN INFUSING. O2 AT 2L DECREASED TO 1L PT IS 99% SAT. INCISION TO ABDOMEN IS CDI. ILEOSTOMY IS PRODUCING MINIMAL AMOUNT OF BLOOD. KAISER TO DD WITH CLEAR YELLOW URINE. TEACHING DONE ON IMPORTANCE OF IS AND HOW TO USE IT. 10 BREATHS DEMONSTRATED. DISCUSSED WITH PT THE NEED TO GET UP AND MOVE AROUND TODAY. GOAL IS TO GET TO EDGE OF BED IF NOT THE CHAIR. WILL CONTINUE WITH CURRENT CARE.
--- NOTE | 2019-01-24 09:15 | NUR ---
OSTOMY CONSULT: PT. HAD A ILLOSTOMY PLACED ON HER RIGHT LOWER ABDOMEN YESTERDAY BY DR. MCNAIR. PT. ALSO HAD A PREVENA PLACED OVER THE MIDLINE ABDOMINAL INCSION. PREVENA WAS MALFUNTIONING. DR. MCNAIR GAVE ORDERS TO REMOVE PREVENA AND RE-DRESS SURGICAL INCSION. PT. OSTOMY APPLIANCE WAS CHANGED TO ACCOMADE THIS. PT. STOMA IS BEEFY RED WITH NO FECAL OUTPUT YET. PT. STOMA A SLIGHTLY RETRACTED WELL. NO SIGNS OF ECORATIONS TO ANY OF THE ZAK-STOMAL AREA. RECOMMENDATIONS: MIDLINE INCSION CARE DAILY AND PRN PER ORDERS OSTOMY APPLIANCE CHANGES 2X PER WEEK AND PRN PT. AND STAFF NURSE WERE INSTRUCTED ON PLAN OF CARE.
--- NOTE | 2019-01-24 10:14 | NUR ---
SW reviewed chart and spoke with nursing. Pt is POD #1. Pt had open sigmoid colectomy with diverting loop ileostomy. Pt has wound vac in place. Pt remains NPO. Awaiting path report. DEV is following to assist as needed with discharge planning.
--- NOTE | 2019-01-24 14:29 | NUR ---
PT PROGRESSING WELL THIS SHIFT. GOT UP TO CHAIR FOR HALF AN HOUR THIS MORNING. PT IS MAINTAINING SATS ON ROOM AIR. PT USING INCENTIVE SPIROMETRY. PAIN IS TOLERABLE ON THE CURRENT REGIMINE. WILL PULL [facility] THIS AFTERNOON AND WALK PATIENT.
--- NOTE | 2019-01-24 17:15 | NUR ---
PT DOING WELL WITH ORAL PAIN MEDICATION. PT ONLY C/O OF BACK PAIN AT THIS TIME WHICH IS NOT A NEW PAIN. REMOVED KAISER. ASSISTED PT TO WALK APPROX 100FT. TOLERATED WELL.
--- NOTE | 2019-01-25 04:49 | NUR ---
Patient remains A&O4; Swallows meds whole w/o difficulty. Cont. B&B. Ambulates w/ asst of 1; Gait steady. Remains Post - op day 2. Midline incision/DRSG noted and remains C/D/I, at this itme. Ileostomy noted to RLQ; dark green, liquid stool noted. Conti Cath removed 01/24/19 @ 1600; Void x2 noted. Remains on Heparin therapy; no s/s of bleeding noted. SCDs intact to BLEs. SL noted to R wrist; infusing PPN @ 80ml/hr w/o difficulty. Glasses intact. Patient denies pain or discomfort, at this time. No s/s of acute distress noted. Patient in bed asleep w/ call light/desired belongings within reach. Will continue to monitor.
[2019-01-25 07:09] VITALS: BP 118/62
--- NOTE | 2019-01-25 10:56 | NUR ---
ASSUMED CARE OF PATIENT THIS MORNING. PATIENT IS A&OX4. SHE IS UP W/ASSIST, PAIN MEDICATION HAS CAUSED THE PATIENT TO BE DROWSY. PATIENT CALLS OUT APPROPRIATELY FOR ASSISTANCE. SHE CURRENTLY HAS PPN RUNNING AT 80ML/HR. SHE RECEIVED A NEW IV FROM IV TEAM TO IN HER R. HAND. SHE WILL HAVE A MIDLINE CATHETER INSERTED LATER ON TODAY. HER DIET HAS BEEN CHANGED TO CLEAR LIQUIDS. PATIENT WAS ASSESSED THIS MORNING. SHE RATED PAIN 3/10. BREATH SOUNDS WERE CLEAR, REGULAR HEART RHYTHM. HYPOACTIVE BOWEL SOUND, ILEOSTOMY WAS EMPTIED, OUTPUT AT 450ML/LIQUID, GREEN COLORED STOOL. HER MIDLINE WET TO DRY DRESSING IS C/D/I. PATIENT IS CURRENTLY LYING IN BED WITH CALL LIGHT WITHIN REACH.
--- NOTE | 2019-01-25 12:20 | NUR ---
SW reviewed chart and spoke with nursing and attending physician. Pt's diet has been advanced to clear liquids. Therapy ordered to evaluate pt for recommendations at time of discharge. Jason is following for possible admission to in acute rehab. DEV discussed with rehabilitation center manager. SW is following to assist as needed with discharge planning.
--- NOTE | 2019-01-25 15:24 | PATH ---
[facility] [address] [place] [address] PATHOLOGY RPT PROCEDURE Name: INDIO BURCIAGA Room #: 221-P ADM IN M.R.#: [id number] ������������������ Admission: 01/12/19 ������������������ Date of : 42 Discharge: Report #: [id number] Path Case #: [id number] [facility] Accession Number: [id number] . 01 Material submitted: . BX COLON MASS - DESCENDING COLON . 01 Clinical history: . Left colon mass per CT, ascending colon mass. . 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 . [facility]/01/22/2019 . 02 Comment: Definitive features of invasive carcinoma are not present. This case is co-reviewed by Dr. Donna rCuz who concurs with my diagnosis. (IUV:pit 01/21/2019) . 02 Electronically signed: . Vidhya Hammond MD, Pathologist NPI- [id number] . 01 Gross description: . Received in formalin labeled "Indio Burciaga, biopsy colon mass descending colon" is a 1.1 x 0.5 x 0.2 cm aggregate of hagen-brown mucosa. The specimen is submitted in cassette A1. ([facility]; 01/20/2019) SYC/SYC . 02 Pathologist provided ICD-10: D12.4 . 02 CPT . 443923 Specimen Comment: Report sent to / DR PORTILLO Specimen Comment: A duplicate report has been generated due to demographic updates. Performed at: [address] [id number] MD Matt Potter MD Phone: [phone] Performed at: [address] [id number] [address] [address] PATHOLOGY RPT PROCEDURE Name: INDIO BURCIAGA Room #: 221-P [facility] IN M.R.#: [id number] ������������������ Admission: 01/12/19 ������������������ Date of : 42 Discharge: Report #: [id number] Path Case #: [id number] MD Vidhya Hammond MD Phone: [phone]
--- NOTE | 2019-01-25 16:53 | NUR ---
PATIENT SEEN BY CABLE SUPERVISOR, DEON, AND DETEREMINED TO BE A CANDIDATE FOR ACUTE REHAB SERVICES. IF PATIENT IS MEDICALLY STABLE AND READY FOR DISCHARGE OVER THE WEEKKEND (01/26 - 01/27/19) PLEASE CONTACT [facility], AT [phone] FOR INITIATING THE REHAB ADMISSION PROCESS.
[2019-01-25 19:16] VITALS: BP 120/63
--- NOTE | 2019-01-26 05:34 | NUR ---
ASSUMED CARE OF PATIENT AT 1900. VSS. ASSESSMENT COMPLETED AT 2025 AND IS DOCUMENTED. PT UP WITH SBA TO BSC SEVERAL TIMES THROUGHOUT THE NIGHT. PRN NORCO AND DILAUDID GIVEN FOR C/O CHRONIC LOWER BACK PAIN WITH DESIRED EFFECT ACHIEVED. PPN CONTINUES TO INFUSE INTO RIGHT WRIST PIV WITHOUT COMPLICATION. ABD DRSG C/D/I UPON ASSESSMENT. ILEOSTOMY PRODUCING BROWN-DARK GREEN LIQUID STOOL. PT CURRENTLY SLEEPING SOUNDLY IN BED IN NO ACUTE DISTRESS. CALL LIGHT WITHIN REACH. BED LOCKED AND IN LOWEST POSITION. WCTM.
--- NOTE | 2019-01-26 05:59 | NUR ---
THIS NURSE AGREES WITH ASSESSMENT AND NOTES FROM CUSTOMER CONSULTANT ON THIS PATIENT.
[2019-01-26 07:08] LABS: HEMATOCRIT 26.3 % (37.0-47.0); HEMOGLOBIN 8.8 gm/dL (12.0-15.0); MCH 31.1 pg (26.0-34.0); MCHC 33.6 g/dL (28.0-37.0); MCV 92.5 fL (80.0-100.0); RBC 2.84 mil/uL (4.20-5.00); RDW 13.1 % (10.5-14.5); WBC 8.7 thou/uL (4.0-11.0)
[2019-01-26 07:23] LABS: ALBUMIN 2.7 g/dL (3.4-5.0); CALCIUM 9.3 mg/dL (8.5-10.1); CREATININE 1.7 mg/dL (0.6-1.0); POTASSIUM 5.3 mmol/L (3.5-5.1); TOTAL BILIRUBIN 0.3 mg/dL (<0.1-1.0); TOTAL PROTEIN 6.5 g/dL (6.4-8.2)
[2019-01-26 07:50] VITALS: BP 121/69
--- NOTE | 2019-01-26 07:56 | NUR ---
ASSUMED PT CARE AT 0700. PT AWAKE, ALERT/ORIENTED X4. DENIES PAIN AT THIS TIME. ASSESSMENT COMPLETED AND IS CHARTED. VSS. DRESSING TO ABD INCISION CHANGED PER ORDERS. INCISION IS WELL-APPROXIMATED, JAUN INTACT. INCISION CLEANSED WITH NS, COVERED WITH XEROFORM AND ABD. SECURED WITH TAPE. ILEOSTOMY IS ASYMTOMATIC DRAINING A SMALL AMOUNT OF LIQUID LIGHT BROWN STOOL. NO NEW CONCERNS AT THIS TIME. WILL CONTINUE WITH CURRENT CARE.
--- NOTE | 2019-01-26 13:12 | NUR ---
PT DOING WELL THIS SHIFT. TOLERATING CLEAR LIQUIDS WELL. PAIN IS CONTROLLED WITH HYDROCODONE IF 2 TABS GIVEN. MOST OF PAIN SHE REPORTS IS IN HER BACK, NO INCISIONAL. PT PARTICIPATED WITH PHYSICAL THERAPY AND SAT IN CHAIR FOR ABOUT 30 MIN. PT RESTING IN BED RIGHT NOW, DENIES NEED FOR PAIN MEDICATION. WILL CONTINUE WITH CARE.
--- NOTE | 2019-01-26 16:06 | NUR ---
AMBULATED PT IN LYMAN APPROXIMATELY 100FT. TOLERATED ACTIVITY WELL. WALKER AND GAIT BELT USED.
[2019-01-26 19:41] VITALS: BP 108/58
--- NOTE | 2019-01-27 04:36 | NUR ---
ASSUMED CARE OF PATIENT AT 1899. VSS. ASSESSMENT COMPLETED AT 2039 AND IS DOCUMENTED. PT UP WITH SBA TO BSC SEVERAL TIMES THROUGHOUT THE NIGHT. PRN NORCO GIVEN FOR C/O CHRONIC LOWER BACK PAIN WITH DESIRED EFFECT ACHIEVED. PT STATED THAT RUBBING LOTION ON HER BACK, IN THE AREA THAT HURTS, HELPS WITH PAIN MANAGEMENT. PRN ORDER FOR VOLTAREN RECEIVED FROM [employer] [place] AND GIVEN. RIGHT WRIST PIV CONTINUES TO INFUSE PPN @ 80 ML/HR WITHOUT COMPLICATION. ILEOSTOMY DRAINING DARK GREEN LIQUID STOOL. ABD DRSG C/D/I. PT CURRENTLY SLEEPING SOUNDLY IN BED IN NO ACUTE DISTRESS. CALL LIGHT WITHIN REACH. BED LOCKED AND IN LOWEST POSITION. WCTM.
--- NOTE | 2019-01-27 05:09 | NUR ---
THIS NURSE AGREES WITH ASSESSMENT AND NOTES ON THIS PATIENT FROM NUT THREADER.
[2019-01-27 08:33] VITALS: BP 129/78
--- NOTE | 2019-01-27 08:38 | NUR ---
ASSUMED PT CARE AT 0700. ASSESSMENT COMPLETED AND IS CHARTED. VSS. PT IS AWAKE, ALERT/ORIENTED X4. REPORTS LOWER, RIGHT BACK PAIN RATED 5/10. DENIES NAUSEA. INCISION TO ABDOMEN IS WELL-APPROXIMATED. DRESSING CHANGED PER ORDERS. ILEOSTOMY IS DRAINING DARK BROWN LIQUID STOOL. IV TO RIGHT HAND IS EDEMTOUS. PPN STOPPED UNTIL NEW IV SITE CAN BE ESTABLISHED. NO NEW CONCERNS OR COMPLAINTS. WILL CONTINUE WITH CURRENT CARE.
[2019-01-27 09:53] LABS: CREATININE 1.6 mg/dL (0.6-1.0); POTASSIUM 5.5 mmol/L (3.5-5.1)
--- NOTE | 2019-01-27 11:27 | NUR ---
PT WALKED IN LYMAN APPROXIMATELY 400FT. TOLERATED WELL. PT UP IN CHAIR AT THIS TIME. DECLINING PAIN MEDICATION AT THIS TIME BUT DOES NOT APPEAR IN EXTREME PAIN.
--- NOTE | 2019-01-27 18:14 | NUR ---
PT CONTINUES TO PROGRESS IN PLAN OF CARE. PT HAD ONE EPISODE OF NAUSEA AROUND LUNCH TIME THAT WAS RESOLVED WITH PO ZOFRAN. PT WAS ABLE TO EAT LUNCH. AND CONTINUES TO TOLERATE FULL LIQUIDS WELL. PT HAS NOT HAD ANY PAIN MEDICATION THIS SHIFT AND IS MOVING AROUND WELL WITHOUT PAIN ISSUES. COLOSTOMY DRAINING MORE OUTPUT, 300 ML FOR THIS SHIFT.
[2019-01-27 19:48] VITALS: BP 105/64
[2019-01-27 20:25] VITALS: BP 105/64
--- NOTE | 2019-01-28 04:18 | NUR ---
Patient remains A&Ox4; Post - op Day 4. Swallows meds whole w/o difficulty. Remains cont. bladder; Needs stand by asst to BSC. Ambulates w/ steady gait. Ileostomy noted to RLQ; draining dark green stool w/o difficulty. DRSG C/D/I to midline incision. SL noted to L wrist; infusing NS @ 75 ml/hr w/o difficulty. Patient remains on heparin therapy; no s/s of bleeding noted. SCDs in tact to BLEs. No c/o N/V, at this time. Patient has no c/o pain or discomfort. No s/s of acute distress noted. Patient asleep in bed w/ call light/desired belongings within reach. Po fluids enocuraged. Will continue to monitor.
--- NOTE | 2019-01-28 05:01 | NUR ---
THIS NURSE AGREES WITH PATIENTS ASSESSMENT AND NURSING NOTES FROM NONPROFIT DIRECTOR.
[2019-01-28 07:12] VITALS: BP 105/61
[2019-01-28 07:42] LABS: CALCIUM 9.2 mg/dL (8.5-10.1); CREATININE 1.8 mg/dL (0.6-1.0); POTASSIUM 5.4 mmol/L (3.5-5.1)
[2019-01-28 09:03] VITALS: BP 105/61
--- NOTE | 2019-01-28 10:42 | NUR ---
ASSUMED CARE OF PATIENT THIS MORNING. PATIENT IS A&OX4. SHE IS UP W/STAND BY ASSISTANCE. SHE GETS UP AND VOIDS PER BEDSIDE COMMODE. NO ABNORMAL FINDINGS WITH ASSESSMENT. HER POTASSIUM WAS 5.4, SODIUM 135, AND CREATININE WAS 1.8. PATIENT'S DIET HAS BEEN CHANGED FROM A FULL LIQUID TO A REGULAR DIET. HER ABDOMINAL INCISION IS C/D/I. WOUND CLEANSER IS USED WITH XEROFORM, ABD, AND SECURED WITH TAPE. SHE DOES NOT COMPLAIN OF ANY PAIN. SHE TOLERATES MEDS WITH THIN LIQUIDS. ILEOSTOMY IS PINK. BAG IS A 2 PIECE APPLIANCE THATS INTACT, DARK GREEN LIQUID. PATIENT WILL POSSIBLY BE DISCHARGED LATER THIS AFTERNOON TO 5N REHAB. PATIENT IS CURRENTLY SITTING IN CHAIR WITH CALL LIGHT WITHIN REACH.
--- NOTE | 2019-01-28 14:50 | NUR ---
WOUND CARE CHANGED PATIENT'S OSTOMY BAG. PATIENT WILL BE TRANSFERRING TO REHAB. REPORT CALLED TO UNIT. PATIENT'S BELONGINGS PACKED AND PATIENT AWAITING TRANSFER.
--- NOTE | 2019-01-28 15:27 | NUR ---
I AGREE WITH NURSING ASSESSMENT DONE BY ADILIA/WILMAN.
--- NOTE | 2019-01-29 12:08 | PATH ---
[facility] [place] [address] PATHOLOGY RPT PROCEDURE Name: INDIO BURCIAGA Room #: 221-P [facility] IN M.R.#: [id number] ������������������ Admission: 01/12/19 ������������������ Date of : 42 Discharge: 01/28/19 Report #: [id number] Path Case #: [id number] [facility] Accession Number: [id number] . 01 Material submitted: . PART A: SIGMOID COLON PART B: ANASTOMOTIC RINGS . 01 Clinical history: . None provided . 02 Diagnosis: A. Large intestine, sigmoid colon, hemicolectomy: - INVASIVE, MODERATELY DIFFERENTIATED COLONIC ADENOCARCINOMA MEASURING 3.2 CM IN GREATEST DIMENSION AND INVADING INTO SUBSEROSA. - LYMPHOVASCULAR SPACE INVASION PRESENT. - Margins of resection free of malignancy; closest mesenteric margin is 4.5 cm away. - ONE LYMPH NODE POSITIVE FOR METASTATIC ADENOCARCINOMA OF A TOTAL OF 28 (1/28). . B. Large intestine, anastomotic rings: - Reactive changes. - Negative for dysplasia or malignancy. (IUV:almaz; 01/25/2019) . . SURGICAL PATHOLOGY CANCER CASE SUMMARY: . Synoptic for Colon and Rectum . Procedure: Sigmoid hemicolectomy . Tumor Site: Sigmoid colon . Tumor Size: 3.2 x 2.6 cm . Macroscopic Tumor Perforation: Not identified . Histologic Type: Adenocarcinoma . Histologic Grade: Grade II or moderately differentiated . Tumor Extension: Tumor invades through the muscularis propria into pericolrectal tissue . Margins: - All margins are uninvolved by invasive carcinoma, high-grade dysplasia, [facility] [address] [place] [address] PATHOLOGY RPT PROCEDURE Name: INDIO BURCIAGA Room #: 221-P [facility]#: [id number] ������������������ Admission: 01/12/19 ������������������ Date of : 42 Discharge: 01/28/19 Report #: [id number] Path Case #: [id number] intramucosal adenocarcinoma and adenoma. __ Margins examined proximal, distal and mesenteric __ Proximal margin - 11 cm away __ Distal margin - 9 cm away __ Mesenteric margin - 4.5 cm away . Treatment Effect: No known presurgical therapy . Lymphovascular Invasion: Present . Perineural Invasion: Not identified . Tumor Deposits: Not identified . Regional Lymph Nodes: __ Number of lymph nodes involved - 1 __ Number of lymph nodes examined - 28 . Pathologic Stage Classification (pTNM, AJCC 8th Edition) __ TNM descriptors: None __ Primary tumor (pT): pT3: tumor invades through muscularis propria into pericolorectal soft tissue __ Regional lymph nodes (pN): pN1a - one regional lymph node is positive __ Distant metastases (pM): Not known . (IUV:almaz; 01/25/2019) QMS/01/28/2019 . 02 Comment: Four immunohistochemical stains MSH2, MSH6, MLH1, and PMS2 are ordered on block A10 per [facility] Cancer Committee protocol. These will be reported in an addendum to follow. . While discussing the results of the prior biopsy tissue ([id number]),the malignant nature of this lesion and the need for colectomy was indicated by Dr. Maldonado in the evening of 01/22/19. . (IUV:almaz; 01/25/2019) . 02 Addendum: . MICROSATELLITE INSTABILITY REPORT (MSI): . Per [facility] Cancer Committee protocol, mismatch repair (MMR) protein immunohistochemical staining is performed. . Reason for testing:To evaluate for evidence of defective mismatch repair proteins. [address] [address] PATHOLOGY RPT PROCEDURE Name: INDIO BURCIAGA Room #: 221-P [facility] IN M.R.#: [id number] ������������������ Admission: 01/12/19 ������������������ Date of : 42 Discharge: 01/28/19 Report #: [id number] Path Case #: [id number] . Method: Immunohistochemical staining for the presence or absence of protein expression of one or more of the following MMR protein markers: MLH1, MSH2, MSH6 and PMS2 performed on block A10. . Tumor type: Invasive adenocarcinoma . Results: MLH1 -Preserved MSH2 -Preserved MSH6 -Preserved PMS2 -Preserved . Mismatch Repair Status:MMR Proficient (MMR-P) . Interpretation: . (MMR-P) All four MMR proteins are preserved within tumor cells. This suggests the presence of normal DNA mismatch repair function within the tumor and an observable defect in mismatch repair is not identified. The likelihood that this patient has an inherited germline mutation syndrome due to defective mismatch repair is reduced but not totally eliminated. If the patient has a strong personal or family history of HPNCC/An syndrome related cancers (colorectal, endometrial, gastric, ovarian, pancreatic, ureter/renal pelvis, biliary tract, brain, small bowel and Sydni-Agustin syndrome), consider MSI testing by PCR methodology. Suggest clinical correlation and follow up. . These test results are designed for screening purposes only and are useful tools in identifying cancer patients that are more likely to have An Syndrome related diagnoses. Tests should be interpreted in the context of clinical findings, family history and laboratory data. Abnormal IHC results for MMR protein expression are not considered diagnostic for An Syndrome. . (IUV:production sampler; 01/28/2019) . Professional services performed by [email or web address] at [facility], [address] [place] [address], [place] [address]. Technical services performed by [email or web address] at [address] [place] [address], [address], [place] [address]. MBR/01/28/2019 Addendum Electronically Signed by Vidhya Hammond MD, Pathologist . 02 Electronically signed: . Vidhya Hammond MD, Pathologist NPI- [id number] . 01 Gross description: . [facility] [address] [place] [address] PATHOLOGY RPT PROCEDURE Name: INDIO BURCIAGA Room #: 221-P [facility] IN ..#: [id number] ������������������ Admission: 01/12/19 ������������������ Date of : 42 Discharge: 01/28/19 Report #: [id number] Path Case #: [id number] A. The specimen is received in formalin, labeled "Indio Burciaga, sigmoid colon", is an previously opened, oriented left hemicolectomy specimen segment of colon measuring 22.3 cm in length with abundantly attached mesocolic adipose tissue measuring up to 6.5 cm. Both the margins are closed by staple line with one consisting of a blue suture. The serosa is hagen-pink, glistening with a stricture in the midportion and black tattoo on the proximal aspect. The proximal margin is a dilated with an internal circumference of 7.0 cm and the distal (blue suture) with an internal circumference of 5.0 cm. There is a circumferential hagen-pink, tumor corresponding to the stricture measuring 3.2 x 2.6 cm in the surface area and 1.2 cm in height. The mass is 9.0 cm from the distal and 11.0 cm from the proximal margins. Sectioning through the mass shows an invasion into underlying adipose tissue extensively. The invasive leading edge of the mass is 4.5 cm from the closest mesenteric margin. The colonic mucosa surrounding the mass is smooth, edematous and pink-hagen. The pericolonic adipose tissue is dissected for lymph node candidates. . Project Engineering Director tissue is submitted as follows: A1-A2. Proximal margin, en face A3. Distal margin, en face A4. Mesocolic margin closest to mass A5-A6. Tumor to serosa (serosa = inked blue) A7.-A8. Tumor with deepest invasion (bisected, green ink at intersection) A9. Tumor to proximal mucosa A10. Tumor to distal mucosa A11-A14. Pericolic adipose tissue for lymph nodes candidate . After initial microscopic review, the specimen is placed in Dissect Aid for lymph node dissection. Possible additional lymph nodes are submitted in A15-A17. ([facility]; 01/25/2019) . B. The specimen is received in formalin, labeled "Indio Burciaga, anastomotic rings", is an intact mucosal covered soft tissue measuring 2.0 x 1.5 x 0.7 cm, entirely submitted in B1. Also received is a disrupted similar tissue with multiple black sutures and jana measuring 2.7 x 1.6 x 1.0 cm, entirely submitted in B2. ([facility]; 01/24/2019) SHS/SHS . 02 Pathologist provided ICD-10: C18.7, C77.2 . 02 CPT . 689336, 065382, D38957, V94612 Specimen Comment: A courtesy copy of this report has been sent to Specimen Comment: [phone], , . Specimen Comment: Report sent to ,DR PORTILLO / [place] [address] PATHOLOGY RPT PROCEDURE Name: INDIO BURCIAGA Room #: 221-P [facility] IN .R.#: [id number] ������������������ Admission: 01/12/19 ������������������ Date of : 42 Discharge: 01/28/19 Report #: [id number] Path Case #: [id number] Specimen Comment: A duplicate report has been generated due to demographic updates. Performed at: 01 [facility] [place] [address], [place], [place] [id number] MD Matt Potter MD Phone: [phone] Performed at: [address], [place], [place] [id number] MD Vidhya Hammond MD Phone: [phone]
--- NOTE | 2019-01-30 20:30 | O ---
[facility] [address] OPERATIVE REPORT Name: INDIO LYNN Room #: 221-P [facility] IN ..#: [id number] Admission: 01/12/19 ������������������ Attend Phys: Deangelo Kim MD Discharge: 01/28/19 ������������������ Date of : 42 Report #: [id number] THIS REPORT FOR: //name// CC: [facility] DATE OF SERVICE: 01/23/2019 SURGEON: Abner Maldonado M.D. BUSINESS MANAGEMENT ASSOCIATE: Milan Anderson D.O. PREOPERATIVE DIAGNOSES: 1. 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 2. Hypertension. 3. Chronic kidney disease. 4. Gastroesophageal reflux disease. 5. Hyperlipidemia. POSTOPERATIVE DIAGNOSES: 1. 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 2. Hypertension. 3. Chronic kidney disease. 4. Gastroesophageal reflux disease. 5. Hyperlipidemia. PROCEDURES: 1. Open sigmoid colectomy with EEA 29 mm stapled end-to-end to anastomosis. 2. Mobilization of the splenic flexure. 3. Diverting loop ileostomy. 4. Placement of topical negative pressure wound VAC. ANESTHESIA: General endotracheal anesthesia. ESTIMATED BLOOD LOSS: 50 mL. SPECIMENS: 1. Sigmoid colon with associated mesentery. 2. Distal descending colon. 3. Anastomotic rings. COMPLICATIONS: None appreciated. INDICATIONS FOR PROCEDURE: This is a 78-year-old female patient who was [facility] [address] [place] [address] OPERATIVE REPORT Name: INDIO LYNN Room #: 221-P [facility]#: [id number] Admission: 01/12/19 ������������������ Attend Phys: Deangelo Kim MD Discharge: 01/28/19 ������������������ Date of : 42 Report #: [id number] transferred to [facility] from [facility] with abdominal pain and distention. She has had difficulty with abdominal pain over the past week with significant worsening leading up to her hospitalization. She was seen in the [facility] Emergency Room and had several episodes of nausea and vomiting. She was transferred to [facility] for further evaluation and treatment. CT of the abdomen and pelvis revealed possible pneumatosis of the cecum. This was followed with a prone CT scan that showed less colonic distention and less likely pneumatosis. The patient's lactate was normal. The patient was followed over several days and ultimately underwent an incomplete colonoscopy, during which time a left-sided colonic mass was present. Biopsies were taken and this was found to represent tubulovillous adenoma with high-grade dysplasia. The patient's CEA was elevated at 7.7. The patient had never undergone a colonoscopy prior to this hospitalization. The mass is felt to represent carcinoma and due to the obstructing nature, resection is indicated. She attempted the bowel prep and states that she continues to pass dark liquid stools. OPERATIVE FINDINGS: Upon entrance into the abdominal cavity, the liver, stomach and small bowel were normal with no evidence for carcinomatosis or gross metastatic disease. The tumor was easily identified as it had been tattooed at the distal aspect by Dr. Day. Good margins were able to be obtained to resect the tumor as well as to obtain multiple lymph nodes with high ligation of the inferior mesenteric artery. The left ureter was easily identified and protected throughout the operation. After excising the colon and opening on the back table, an apple core lesion was present causing near obstruction. The bowel prep was poor. Based on this, decision was made to anastomose the colon and bring out a protective diverting loop ileostomy. The anastomotic rings were both complete. The anastomosis itself was tension free after mobilizing the splenic flexure. At the conclusion of the operation, sponge, needle and instrument counts were correct. The diverting loop ileostomy was palpably patent beyond the fascial level including both the afferent and efferent limbs. DESCRIPTION OF PROCEDURE IN DETAIL: After the risks, benefits and expectations of the operation were discussed in detail with the patient, informed consent was obtained. The patient was identified in the preoperative holding area. She was given IV antibiotics as documented in the chart in line with SCIP metrics. She has also been given a Meckel's prep. The patient was taken to the operating room. She was placed in the supine position. SCDs were placed on the patient's bilateral lower extremities and pneumatic compression was initiated. The patient was then given IV sedation and she was intubated without incident. Her abdomen was prepped and draped in the standard sterile fashion. A time-out was performed to identify the correct patient and procedure. A sharp #10-blade scalpel was used to make a vertical midline incision around the umbilicus on the left. Electrocautery was used to dissect through subcutaneous tissue down to the fascia. The fascia and peritoneum were opened [facility] [address] [place] [address] OPERATIVE REPORT Name: INDIO LYNN Room #: 221-P [facility] IN [place]#: [id number] Admission: 01/12/19 ������������������ Attend Phys: Deangelo Kim MD Discharge: 01/28/19 ������������������ Date of : 42 Report #: [id number] along the length of the incision. Upon entrance in the abdominal cavity, the abdomen was explored. No gross metastatic disease was present. Findings were as noted above. The tumor was easily palpable. The Omni retractor was placed to assist with retraction. The colonic mesentery was scored medially and laterally to an area to the rectosigmoid junction. A window was made in the mesentery and the blue load NICHOALS stapler was used to staple and divide the colon in this area. Two firings of the 65 mm stapler were necessary to accomplish this. The mesentery was scored higher above the lesion. A proximal transection point was chosen. A mesenteric window was created and the colon was stapled off in this area using a blue load 65 mm NICHOLAS stapler. The colon was then dissected off of the lateral abdominal pelvic sidewall. The ureter was identified and protected. The mesentery was then divided starting distally and working proximally and proximally working distally to isolate the inferior mesenteric artery. Lymph nodes were palpable. The inferior mesenteric artery was highly ligated with the EnSeal energy device with good hemostasis. The colon was then sent for specimen with a suture marking the distal aspect. Prior to sending the colon, it was opened on the back table. The prep was obviously a very poor proximal to the obstructing mass. The patient was felt to require either an end-colostomy or diverting ileostomy. The descending colon was dissected off of the abdominal wall along the white line of Toldt. Dissection was carried up to the splenic flexure. The splenic flexure was carefully taken down with appropriate traction and electrocautery. This minimized the tension on the planned anastomosis. The proximal staple line reached the pelvis without difficulty. The descending colon staple line was then excised after placing a pursestring suture with the auto-pursestring device. The suture was tagged and sizers were used to determine the appropriate stapler size. The 29 mm EEA stapler anvil was placed within the open descending colon and the pursestring suture was tied. An additional 2-0 Prolene pursestring suture was placed to cinch the tissue around the stalk of the anvil. From below, the anus and rectum were sequentially dilated. The 29 mm EEA stapler was advanced to the rectal stump. The spike was then advanced through the colon just anterior to the staple line. The spike and anvil were connected with an audible click. The stapler was then tightened and fired and carefully removed. The anastomotic rings were complete. A leak test was performed next. The colon was compressed proximal to the anastomosis. The anastomosis was submerged under saline. The rigid proctoscope was used to insufflate air into the colon and no air bubbles were seen emanating through the fluid. The fluid was then suctioned. The wound was packed with moist towels. [address] [address] OPERATIVE REPORT Name: SHANEINDIO Room #: 221-P [facility] IN M.R.#: [id number] Admission: 01/12/19 ������������������ Attend Phys: Deangelo Kim MD Discharge: 01/28/19 ������������������ Date of : 42 Report #: [id number] The loop ileostomy was created next. A circular skin incision was made in an appropriate area. Dissection was carried down to the fascia. A cruciate incision was made in the fascia. The underlying rectus muscle was split longitudinally. The posterior tissue was divided and a loop of the ileum was advanced through the opening, delivered through the circular incision. The orientation of the bowel was maintained with no twisting of the mesentery. The stoma would be matured after closure of the abdominal wall. The abdominal cavity was irrigated and suctioned and return of all drainage ran clear. After ensuring final hemostasis and that the sponge, needle and instrument counts were correct, Interceed was placed beneath the planned abdominal wall closure. The midline abdominal wall fascia was closed with a running looped #1 PDS suture. The subcutaneous tissue was irrigated. Rodri were used for skin closure. The ileostomy was matured next. The bowel was opened longitudinally along the antimesenteric border. Interrupted 3-0 Vicryl Gwen type sutures were placed at the 12, 3, 6, and 9 o'clock positions. Short runs of 3-0 Vicryl were then used to completely mature the stoma. The stoma was palpably patent beyond the fascial level for both the afferent and efferent limbs. The skin was cleansed and dried. The Prevena topical negative pressure wound VAC was placed over the midline incision. A notch was cut in the dressing to accommodate for the ileostomy. A 2-piece ileostomy appliance was then placed. The patient tolerated the procedure well. She was awakened, extubated and taken to Recovery Room in stable condition with no apparent intraoperative complications. ��������������������������������������������� <ELECTRONICALLY SIGNED> ���������������������������������������� By: Abner Maldonado MD, FACS ��������������������������������������������� 01/30/192029 29 [id number] Abner Maldonado MD, FACS /nt
== END 2019-01-28 15:31 | DRG 329 ==
LOC: 3W 12:58 → SICU 01-15 18:30 → ENTRNSPT 01-28 15:06 → EDTRNSPTSTS 01-28 15:22 → SICU 01-28 15:31
PROVIDERS: Hospitalist; Internal Medicine; Nurse Practitioner; Specialist; ADMIT Internal Medicine
DX: D12.4 Benign neoplasm of descending colon (principal); E43 Unspecified severe protein-calorie malnutrition; N18.4 Chronic kidney disease, stage 4 (severe); N17.9 Acute kidney failure, unspecified; K56.609 Unspecified intestinal obstruction, unspecified as to partial versus complete obstruction; K63.89 Other specified diseases of intestine; K52.9 Noninfective gastroenteritis and colitis, unspecified; E89.2 Postprocedural hypoparathyroidism; M19.90 Unspecified osteoarthritis, unspecified site; H54.61 Unqualified visual loss, right eye, normal vision left eye; I12.9 Hypertensive chronic kidney disease with stage 1 through stage 4 chronic kidney disease, or unspecified chronic kidney disease; K21.9 Gastro-esophageal reflux disease without esophagitis; D50.9 Iron deficiency anemia, unspecified; N28.89 Other specified disorders of kidney and ureter; E78.5 Hyperlipidemia, unspecified; M54.5 Low back pain; G89.29 Other chronic pain; F32.9 Major depressive disorder, single episode, unspecified; Z68.29 Body mass index [BMI] 29.0-29.9, adult; Z90.49 Acquired absence of other specified parts of digestive tract; Z79.899 Other long term (current) drug therapy; Z88.0 Allergy status to penicillin; Z88.8 Allergy status to other drugs, medicaments and biological substances
CPT/HCPCS: 10779; 10879; 15001; 15002; 50010; 50093; 50101; 50290; 50386; 50455; 50740; 50953; 51398; 51412; 56524; 56525; 56530; 56753; 56771; 57092; 57103; 62110; 62900; 70005

== ENCOUNTER 2019-01-28 13:54 | Inpatient (IN) | payer OTHER ==
[~2019-01-28] VITALS: Ht 160 cm; Wt 74.4 kg
--- NOTE | ~2019-01-28 | H ---
[facility] [place] [address] HISTORY AND PHYSICAL Name: INDIO LYNN Room #: 509-P ADM IN M.R.#: [id number] Admission: 01/28/19 ������������������ Attend Phys: Hao Farnsworth MD Discharge: ������������������ Date of : 42 Report #: [id number] THIS REPORT FOR: //name// CC: Hao Farnsworth FAM unknown RUDY TATE DATE OF SERVICE: 01/28/2019 HISTORY AND PHYSICAL/POST-ADMISSION PHYSICIAN EVALUATION: HISTORY OF PRESENT ILLNESS: The patient is a 78-year-old female originally admitted to [facility] on 01/12/2019 with abdominal pain. She was found to have an obstructing left colon mass and underwent sigmoid colectomy with ileostomy on 01/23/2019. 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 She was gradually advanced as far as her diet. She does have the ostomy. She is noted to be debilitated and is being followed for chronic kidney disease stage IV. She also has a history of More's esophagus. She was noted to have a significant decline from her premorbid function. She has not been admitted for acute in-hospital inpatient rehabilitation. PAST MEDICAL HISTORY: Includes hypertension, hyperlipidemia. PAST SURGICAL HISTORY: Includes cataract surgery, parathyroidectomy, right carpal tunnel syndrome. MEDICATIONS: Please see the full medication listing. This includes vitamins, herbals, and supplements. ALLERGIES: DIPHENHYDRAMINE AND PENICILLIN. SOCIAL HISTORY: Lives in a house with her . Premorbidly did not utilize adaptive aids. She has one stair to enter in all living on one level. She was independent with ADLs. HABITS: No history of tobacco, alcohol abuse or recreational drug abuse. FAMILY HISTORY: Noncontributory. REVIEW OF SYSTEMS: No complaints of chest pain, shortness of breath or current abdominal pain. She does have generalized weakness, feels that her function has declined. No fever or chills. No complaints of palpitation, syncope were verbalized. No numbness, tingling, dizziness, headache were noted. No other focal extremity pain complaints. PHYSICAL EXAMINATION: [facility] [address] [place] [address] HISTORY AND PHYSICAL Name: INDIO LYNN Room #: 509-P [facility] IN [facility].#: [id number] Admission: 01/28/19 ������������������ Attend Phys: Hao Farnsworth MD Discharge: ������������������ Date of : 42 Report #: [id number] GENERAL: This is a 78-year-old white female, in no obvious distress. The patient is alert. She is pleasant. VITAL SIGNS: Last recorded temperature 98.3, pulse 67, respirations 20, blood pressure 118/57. NEUROLOGIC: Appeared to be benign. Cranial nerves grossly intact. Facies are symmetric. She follows basic commands without difficulty. She is on room air. HEENT: Appeared to be benign. CHEST: Sounded clear to auscultation. CARDIOVASCULAR: Regular rate and rhythm. ABDOMEN: Bowel sounds positive, nontender. Ostomy bag is in place. Appears intact. EXTREMITIES: She has functional range of motion of both upper extremities. Strength is grade 4-/5. DTRs are trace to 1. Lower extremities, no focal calf swelling, functional range of motion, strength is grade 3+ to 4-/5. DTRs are trace to 1. No focal calf swelling. Functionally, she is at a standby assistance with basic functional mobility and has been able to ambulate a short distance with a front-wheeled walker. ASSESSMENT: This is a 78-year-old white female with the following problem list: 1. Medical complexity with generalized debilitation. 2. Left colon mass, status post sigmoid colectomy with ileostomy on 01/23/2019. 3. Chronic kidney disease stage 4 with hyperkalemia. 4. History of More's esophagus. 5. Iron deficiency anemia. 6. Prior history of chronic low back pain. 7. Prior history of depression. PLAN: The patient is admitted for acute in-hospital inpatient rehabilitation. From a postadmission physician evaluation perspective, there are no relevant changes since the preadmission screening. Please see the above review of prior and current medical and functional conditions and comorbidities. Please see the patient's previous and current functional status. As far as risk of complications, the patient has multiple medical comorbidities as noted above. Initial plan of care involves the interdisciplinary acute inpatient rehabilitation program with goal of maximizing the patient's functional independence, so that she can hopefully return back to her prior living situation. Measurable functional goals would be for the patient to become modified independent with transfers, mobility, ADLs, so that she can hopefully return back to her prior living situation. Prognosis is reasonably good with estimated length of stay probably 5-10 days pending progress. Potential barriers would include her multiple medical comorbidities and decreased functional status. The patient meets diagnostic criteria for an acute in-hospital inpatient rehabilitation stay. She meets medical necessity criteria and we will have the analysis consultant physicians continue to follow up. She does have [facility] [address] [place] [address] HISTORY AND PHYSICAL Name: INDIO LYNN Room #: 509-P ADM IN M.R.#: [id number] Admission: 01/28/19 ������������������ Attend Phys: Hao Farnsworth MD Discharge: ������������������ Date of : 42 Report #: [id number] the tolerance for therapies and she has appropriate discharge goals back to the home setting. ��������������������������������������������� ���������������������������������������� By: ��������������������������������������������� 0822 0836 Hao Farnsworth MD /nt
--- NOTE | ~2019-01-28 | PLAN ---
[facility] [place] [address] REHAB UNIT PLAN OF CARE Name: INDIO LYNN Room #: 509-P ADM IN M.R.#: [id number] Admission: 01/28/19 ������������������ Attend Phys: Hao Farnsworth MD Discharge: ������������������ Date of : 42 Report #: [id number] THIS REPORT FOR: //name// CC: Hao Farnsworth FAM unknown RUDY TATE DATE OF SERVICE: 01/30/2019 PROGRESS NOTE/OVERALL PLAN OF CARE SUBJECTIVE: The patient is seen back today in followup. She is in no distress. OBJECTIVE: VITAL SIGNS: Last recorded temperature 36.8, pulse 59, respirations 11, blood pressure 111/66. NEUROLOGIC: No calf swelling. Transfers are supervision with gait 160 feet front-wheeled walker with supervision. In occupational therapy, lower body dressing is min assist. ASSESSMENT: 1. Medical complexity with generalized debilitation. 2. Stage 3 colon cancer. She is status post colectomy with ileostomy on 01/23/2019. 3. Chronic kidney disease stage 4 with hyperkalemia. 4. History of More's esophagus. 5. Iron deficiency anemia. 6. Prior history of chronic low back pain. 7. Prior history of depression. PLAN: The overall plan of care is based on the pre-admission screen, post-admission physician evaluation and information garnered from therapy assessments. 1. Estimated length of stay is plan for her to be discharged next 02/05/2019. 2. Medical prognosis is reasonably good. 3. Anticipated interventions include the interdisciplinary acute inpatient rehabilitation program. 4. Anticipated functional outcomes would be for the patient to become modified independent with transfers, mobility, ADLs so that she can return back to the home setting. She did not utilize gait aids premorbidly. Our goal at this time would be for her to be independent at least at the walker level. 5. Discharge destination would be back to the home setting where she lives with her . 6. Expected therapy by discipline includes PT and OT 1-1/2 hours per day, each [address] [address] REHAB UNIT PLAN OF CARE Name: SHANEINDIO Eduard Room #: 509-P [facility] IN ..#: [id number] Admission: 01/28/19 ������������������ Attend Phys: Hao Farnsworth MD Discharge: ������������������ Date of : 42 Report #: [id number] five days a week throughout the duration of the acute inpatient rehabilitation stay. ��������������������������������������������� ���������������������������������������� By: ��������������������������������������������� 0900 2118 Hao Farnsworth MD /nt
--- NOTE | ~2019-01-28 | HC ---
[facility] [place] [address] CONSULTATION Name: INDIO LYNN Room #: 509-P ADM IN .R.#: [id number] Admission: 01/28/19 ������������������ Attend Phys: Hao Farnsworth MD Discharge: ������������������ Date of : 42 Report #: [id number] THIS REPORT FOR: //name// CC: Hao Farnsworth FAM unknown RUDY TATE DATE OF SERVICE: 02/04/2019 REASON FOR CONSULTATION: Hyperkalemia. REASON FOR PRESENTATION: To the rehab floor, improving functional mobility and activity. HISTORY OF PRESENT ILLNESS: This is a patient who is known to have chronic kidney disease and is followed by another magnetic resonance technologist with [facility]. She sees Dr. Alvares. She was told that she has stage 4 chronic kidney disease. She is not aware of her exact numbers. She is status post colostomy for a colon mass. The patient was admitted on 01/12/[address] at that time showed pneumatosis of the cecum. She was initially evaluated at [facility]. She denied any blood per rectum when she presented. She did report black stools. She had previous history of GI bleeding in the past. White blood cell count was within normal range. Lactic acid was also within normal range. I had previously evaluated her back in 2018 for an elevated creatinine. I am being consulted to manage her acute kidney injury, chronic kidney disease as she is currently running into issues with hyperkalemia. PAST MEDICAL HISTORY: 1. Chronic kidney disease. 2. Hypertension. 3. Hyperlipidemia. 4. Colon cancer. 5. Post colostomy for colonic mass. 6. Debility. 7. More esophagus. 8. Pneumatosis of the cecum. 9. Recent post sigmoid colectomy with end-to-end anastomosis and diverting loop ileostomy. SOCIAL HISTORY: She denies drug or alcohol abuse. FAMILY HISTORY: Significant for hypertension. REVIEW OF SYSTEMS: GENERAL: Significant for weakness. CARDIOVASCULAR: No chest pain or palpitation. [facility] [address] [place] [address] CONSULTATION Name: INDIO LYNN Room #: 509-P [facility] IN ..#: [id number] Admission: 01/28/19 ������������������ Attend Phys: Hao Farnsworth MD Discharge: ������������������ Date of : 42 Report #: [id number] PULMONARY: No cough or hemoptysis. GASTROINTESTINAL: Significant for decreased p.o. intake. GENITOURINARY: No frequency, no urgency. MUSCULOSKELETAL: No arthralgias. NEUROLOGICAL: No dizziness. No headache. HOME MEDICATIONS: 1. Metoprolol. 2. Amlodipine. 3. Pantoprazole. PHYSICAL EXAMINATION: GENERAL: She is lethargic, weak. VITAL SIGNS: Blood pressure is 109/74. HEAD AND NECK: No JVD. Dry mucous membrane. CHEST: No crackles. CARDIOVASCULAR: No rub. ABDOMEN: Ileostomy present. EXTREMITIES: Lower extremities, no edema. LABORATORY DATA: Reviewed. Potassium is 7.1, creatinine is 2.6. She is mildly acidotic. Previous labs as of December 2018 showed that her baseline creatinine is around 1.8. Remote labs in 2018 showed that her baseline creatinine is also around 2.0. ASSESSMENT, IMPRESSION AND PLAN: 1. Acute kidney injury. 2. Hyperkalemia. 3. Dehydration. 4. Acidosis. 5. Initiate the appropriate treatment for hyperkalemia. 6. Avoid Kayexalate in a patient with recent bowel surgery. 7. Start IV fluid given the fact that the patient had been on the negative balance in the last few days. 8. Scan her bladder. 9. Repeat potassium in the next couple of hours. 10. Discussed with the patient. The patient has been receiving potassium with her dietary items, those should be completely discontinued. ��������������������������������������������� ���������������������������������������� By: ��������������������������������������������� 0857 0112 Holly Emmanuel MD /nt
[~2019-01-28 13:54] MED LIST changes: +FERREX 150150 MG PO; +TYLENOL EXTRA500 MG PO; +VITAMIN D-32000 UNIT PO
[2019-01-28 15:30] VITALS: BP 118/58
--- NOTE | 2019-01-28 17:51 | NUR ---
ASSUMED CARE AT APPROX 1600. PATIENT A/O X4. ORIENTED TO OWN ABILITY, CALLS APPROPRIATELY. VERBALIZED UNDERSTANDING OF FALL PRECAUTIONS. VSS. UP X1 PERSON CGA FOR TOILETING PER BSC. C/O CHRONIC BACK PAIN, MEDICATED PRIOR TO ADMISSION, RATES PAIN 3/10. MIDLINE INCISION DRESSING C/D/I. PATIENT SPLINTS WITH PILLOW WHEN MOVING IN BED. ILEOSOTMY DRESSING C/D/I, SMALL AMOUNT OF SOFT BROWN STOOL NOTED NEAR STOMA. PATIENT ORIENTED TO REHAB UNIT. ADMISSION ASSESSMENT AND HISTORY COMPLETE. MED ORDERS RECEIVED, FAXED TO PHARMACY. CONSULTS CALLED EXCEPT ONCOLOGY, PASSED THIS ON TO EVENING RN. PATIENT'S SPOUSE NOTIFIED OF ADMISSON. ROUNDED ON HOURLY. WILL CONTINUE TO MONITOR.
[2019-01-28 20:30] VITALS: BP 118/57
--- NOTE | 2019-01-29 02:00 | NUR ---
PT ALERT AND ORIENTED X 4. ABD DRESSING C/D/I. ILEOSTOMY INTACT WITH LOOSE BROWN/GREEN STOOL. PT C/O PAIN IN HER BACK. HYDROCODONE GIVEN AT HS AND PT SLEEPING UPON REASSESSMENT. REFUSED VOLTAREN GEL AT MIDNIGHT. TURNED Q2H. BED ALARM ON FOR SAFETY. PT APPEARS TO BE SLEEPING IN BETWEEN TURNS.
[2019-01-29 06:09] LABS: HEMATOCRIT 27.1 % (37.0-47.0); HEMOGLOBIN 9.1 gm/dL (12.0-15.0); MCH 31.2 pg (26.0-34.0); MCHC 33.7 g/dL (28.0-37.0); MCV 92.8 fL (80.0-100.0); RBC 2.92 mil/uL (4.20-5.00); RDW 13.2 % (10.5-14.5); WBC 8.1 thou/uL (4.0-11.0)
[2019-01-29 06:33] LABS: CALCIUM 9.3 mg/dL (8.5-10.1); CREATININE 1.8 mg/dL (0.6-1.0)
[2019-01-29 06:36] LABS: POTASSIUM 5.4 mmol/L (3.5-5.1)
[2019-01-29 07:15] VITALS: BP 116/53
--- NOTE | 2019-01-29 07:59 | NUR ---
ASSUMED CARE AT 0700. PATIENT IS ALERT AND ORIENTED X4. PATIENT GONZALEZ'S, MILITARY PAY CLERK ARE EQUAL. LUNGS ARE CLEAR. ABD IS SOFT WITH BSX4. PATIENT HAS ILEOSTOMY DRAING GREEN/YELLOW STOOL. UP TO BSC TO VOID YENNY COLORED URINE. FALL AND SAFETY PROTOCOLS IN PLACE. DENIES PAIN AT THIS TIME. CONTINUES TO PROGRESS SLOWLY TOWARDS D/C GOALS. WILL CONTINUE TO MONITER.
--- NOTE | 2019-01-29 16:49 | NUR ---
Cm assessment completed with the pt at bedside. Cm role, 5N team conference and dc planning discussed. The pt lives with her spouse and was indep prior to admission. She has 2 steps to enter their home. Spouse and adult children are very supportive. Pt is working with the ostomy nurse and will need f/u ostomy teaching with home health. She as a FWW at home. Team conference recommendations discussed. Anticipated dc next 02/05/19 to home with spouse and HH director diversity, and PT. The pt will update her family. Cm to look for a agency that goes to [place] and has an director diversity. [facility] is not able to accept due to location. Our ostomy nurse is doing her bag changes on Mondays/.
[2019-01-29 19:40] VITALS: BP 111/55
--- NOTE | 2019-01-30 04:29 | NUR ---
Assumed care of pt at 1915. Pt alert and oriented x4, calm and cooperative. Pivot transfers to [facility] with assist of one using gait belt and walker. c/o abdominal pain, relieved with po Lortab. Ileostomy intact, passing brown liquid stool. Has appeared to be sleeping when checked on hourly rounds. Fall precautions in place.
[2019-01-30 08:17] VITALS: BP 111/66
--- NOTE | 2019-01-30 11:59 | NUR ---
ASSUMED CARE AT 0700. PATIENT IS ALERT AND ORIENTED X4. PATIENT GONZALEZ'S, ADMINISTRATION INTERN ARE EQUAL. LUNGS ARE CLEAR. ABD IS SOFT WITH BSX4. PATIENT HAS ILEOSTOMY ON RIGHT ABD DRAINING GREEN/BROWN MUSHY STOOL. ABD DRESSING CHANGED PER PROTOCOL. UP TO BSC TO VOID YENNY COLORED URINE. FALL AND SAFETY PROTOCOLS IN PLACE. C/O BACK PAIN. MEDICATED WITH PRN PAIN MED. CONTINUES TO PROGRESS TOWARDS D/C GOALS. WILL CONTINUE TO MONITER.
[2019-01-30 13:30] VITALS: BP 111/66
--- NOTE | 2019-01-30 14:02 | NUR ---
Pt requesting dc date be moved to Sunday 02/04 as her dtr is available that day to take her home. Care team updated and all parties agreeable. Plan dc to home with HH on Monday.
--- NOTE | 2019-01-30 14:06 | NUR ---
DCP NOTIFIED SJ IN ADM. AT [facility] THAT DC DATE CHANGED TO 02/04 AND THEY WILL START VISITS ON 02/05. DCP TO FOLLOW.
[2019-01-30 20:13] VITALS: BP 107/59
--- NOTE | 2019-01-31 00:11 | NUR ---
PT ALERT AND ORIENTED X 4. ILEOSTOMY INTACT WITH LIQUID GREEN/BROWN STOOL. DRESSING TO ABD C/D/I. PT C/O PAIN IN HER BACK. HYDROCODONE GIVEN AT HS AND PT SLEEPING UPON REASSESSMENT. BED ALARM ON FOR SAFETY. PT APPEARS TO BE SLEEPING ON HOURLY ROUNDS.
[2019-01-31 05:48] LABS: ABSOLUTE NEUTROPHILS 3.7 thou/uL (1.4-8.2); BASOPHILS 0.5 % (0.0-2.0); EOSINOPHILS 3.1 % (0.0-3.0); HEMATOCRIT 26.9 % (37.0-47.0); HEMOGLOBIN 8.9 gm/dL (12.0-15.0); LYMPHOCYTES 16.1 % (24.0-44.0); MCH 30.6 pg (26.0-34.0); MCHC 33.1 g/dL (28.0-37.0); MCV 92.4 fL (80.0-100.0); PLATELET COUNT 310 thou/uL (150-400); POLYS 72.3 % (36.0-66.0); RBC 2.91 mil/uL (4.20-5.00); RDW 12.9 % (10.5-14.5); WBC 5.1 thou/uL (4.0-11.0)
[2019-01-31 06:00] LABS: CALCIUM 9.7 mg/dL (8.5-10.1); CREATININE 1.8 mg/dL (0.6-1.0); MAGNESIUM 2.6 mg/dL (1.8-2.4); POTASSIUM 5.6 mmol/L (3.5-5.1)
[2019-01-31 08:44] VITALS: BP 95/47
--- NOTE | 2019-01-31 14:23 | NUR ---
OSTOMY CONSULT: PT. WAS SEEN TODAY FOR OSTOMY APPLIANCE CHANGE. I HAVE BEEN FOLLOWING THIS PT. ON THE ACUTE SIDE POST SUGERY PRIOR TO TRANSFER TO . TODAY PT. WAS ABLE TO ASSIST WITH APPLIANCE CHANGE. SHE IS ABLE TO UNDERSTAND AND VERBLAIZE TEACHING UTLIZING TEACH BACK METHOD.
--- NOTE | 2019-01-31 15:43 | NUR ---
ASSUMED CARES AT 0700. PT ALERT AND ORIENTED*4. C/O LOW BACK PAIN, VOLTAREN GEL + ACETAMINOPHEN ADMINISTERED NEEDED. BP LOW THIS AM, PT ASYMPTOMATIC, WILL CONTINUE TO MONITOR. INCISION IN MID ABDOMEN REMAINS INTACT AND DRY, DRESSING REMOVED BY WOUNDCARE NURSE, JUAN REMAIN INTACT. ILLEOSTOMY INTACT AND PATENT, GREEN/ BROWN WATERY STOOL EMPTIED. ILLEOSTOMY BAG CHANGED TODAY BY WOUNDCARE. POTASSIUM AT 5.6 TODAY SODIUM POLYSTYRENE SULFONATE ADMINISTERED ORDERED, LABS TO FOLLOWUP TOMORROW. UP WITH 1 PERSON SBA, GAITBELT AND WALKER. Q1H VISUAL CHECKS. CALL LIGHT WITHIN REACH. FALL PRECAUTIONS IN PLACE
[2019-01-31 19:47] VITALS: BP 111/62
--- NOTE | 2019-02-01 00:33 | NUR ---
PT ALERT AND ORIENTED X 4. AMB TO BR WITH WALKER AND ASSIST X 1 WITHOUT DIFFICULTY. ILEOSTOMY INTACT DRAINING LARGE AMTS CLEAR BROWN LIQUID. ABD INCISION C/D/I WITH JUAN. AK PAD TO BACK. BP 111/62 AT HS. METOPROLOL HELD PER PARAMETERS. PT DENIES PAIN OR DISCOMFORT. BED ALARM ON FOR SAFETY. PT APPEARS TO BE SLEEPING ON HOURLY ROUNDS.
[2019-02-01 05:02] LABS: CALCIUM 9.7 mg/dL (8.5-10.1); CREATININE 2.1 mg/dL (0.6-1.0); POTASSIUM 5.3 mmol/L (3.5-5.1)
[2019-02-01 08:00] VITALS: BP 120/73
--- NOTE | 2019-02-01 12:30 | NUR ---
PT ALERT AND ORIENTED TIMES FOUR. VSS, 98%RA. MIDLINE INCISION JUAN OPEN TO AIR INTACT. PT DENIES PAIN/SOA. PT UP WALKING AROUND THE UNIT WITH PHYSICAL THERAPY. PT TOLERATES MEDS AND MEALS. PT SLOWLY PROGRESSING TOWRADS POC GOALS.
[2019-02-01 20:00] VITALS: BP 115/69
--- NOTE | 2019-02-02 04:06 | NUR ---
assumed care at approx 1900 evening 02/01. pt alert and oriented x4, pleasant and cooperative. pt assisted with ileostomy emptying bag. pt took hs meds with water tolerating well. pt given Tylenol as ordered for back pain. pt appears to be sleeping soundly with hourly rounding checks. bed alarm on and call light in reach. will continue to monitor.
[2019-02-02 07:30] VITALS: BP 117/60
--- NOTE | 2019-02-02 08:46 | NUR ---
ASSUMED CARE AT 0700. PATIENT IS ALERT AND ORIENTED X4. PATIENT GONZALEZ'S, SENIOR DEVOPS ENGINEER ARE EQUAL. LUNGS ARE CLEAR. ABD IS SOFT , WITH ABD INCISION OPEN TO AIR. ILEOSTOMY INTACT DRAINING GREEN/BROWN STOOL. NO EDEMA NOTED. FALL AND SAFETY PROTOCOLS IN PLACE. DENIES ANY PAIN. CONTINUES TO PROGRESS SLOWLY TOWARDS D/C GOALS. WILL CONTINUE TO MONITER.
[2019-02-02 20:17] VITALS: BP 114/67
--- NOTE | 2019-02-03 03:41 | NUR ---
assumed care at approx 1900 evening 02/02. pt alert and oriented x4, appropriat and cooperative. pt somewhat upset about her meals not being correct. day rn notified dietary and they are aware and stated they will correct problems. pt took hs meds with water tolerating well. emptied ileostomy bag. pt appears to be sleeping soundly with hourly rounding checks. bed alarm on and call light in reach. will continue to monitor.
[2019-02-03 09:46] VITALS: BP 114/69
--- NOTE | 2019-02-03 15:33 | HC ---
[facility] [place] [address] CONSULTATION Name: INDIO LYNN Room #: 509-P ADM IN M.R.#: [id number] Admission: 01/28/19 ������������������ Attend Phys: Hao Farnsworth MD Discharge: ������������������ Date of : 42 Report #: [id number] THIS REPORT FOR: //name// CC: Hao Farnsworth FAM lia TATE DATE OF SERVICE: 02/02/2019 ATTENDING PHYSICIAN: Hao Farnsworth MD. BRAKESHOE REPAIRER: Oswaldo Miller, PhD. CLINICAL PRESENTATION: The patient is a 78-year-old white female admitted to the rehabilitation unit at [facility] for comprehensive inpatient rehabilitation program to improve functional mobility and activities of daily living and self-care secondary to deficits from medical complexity and generalized debility. The patient reports that she was experiencing stomach pain when she went into the hospital for evaluation. She was diagnosed with a left colon mass and is now status post sigmoid colectomy with ileostomy on 01/23/2019. Her assessment also includes chronic kidney disease, stage 4 with hyperkalemia, history of More's esophagus, iron deficiency anemia, history of chronic low back pain and a prior history of depression. A complete description of her medical condition and history can be found in her medical record. Neuropsychological consultation was requested to provide assistance in the assessment of cognitive and emotional status and to provide recommendations and services. Prior to this most recent admission, she was living independently with her in their home. The patient reports driving and having been independent with instrumental activities of daily living. Her indicates that he was diagnosed with a dementia presentation. She has 2 children. 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 Her family is supportive. TECHNIQUES UTILIZED: Clinical interview, review of medical records, staff consultation and behavioral observation, family interview - and a mini mental status exam 2 brief version. EXAMINATION FINDINGS: The patient was alert and oriented during the assessment. She accurately described events surrounding her admission. There is no evidence of aphasia. She does not report auditory or visual hallucinations. anxiety or depression at this time; however, increased [facility] [address] [place] [address] CONSULTATION Name: INDIO LYNN Room #: 509-P [facility].#: [id number] Admission: 01/28/19 ������������������ Attend Phys: Hao Farnsworth MD Discharge: ������������������ Date of : 42 Report #: [id number] anxiety, would be suggested given the extent of her current medical condition and recent surgery. She does not report difficulty with sleep, appetite, energy level, memory or word finding. The patient scored in the low average range on the brief version of the MMSE 2. She was 3/3 for initial registration, 5/5 for orientation to time and 4/[address] and 0/3 for immediate recall of 3 items after a brief time delay and distraction. Her raw score on the MMSE 2 brief version was 12/16, which is a T score of 29 and percentile rank of 2. Mild deficits are suggested in immediate recall. While she is alert and oriented, increased stress from her recent medical condition may be contributing to variability in cognition. 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 RECOMMENDATIONS: She would benefit from increased support upon her return home. While her presents with decreased cognition, increased family assistance would be of benefit for assistance with the management of medication and nutrition to ensure safety and ability to follow through with treatment recommendations. She has a history of depression as noted in her medical record. She is not currently taking an antidepressant. Family monitoring of mood may be of benefit to continue assess for depression. Thank you very much for allowing me to provide the consultation on this patient. ��������������������������������������������� <ELECTRONICALLY SIGNED> ���������������������������������������� By: Oswaldo Miller, PhD ��������������������������������������������� 02/03/19 1533 [id number] Oswaldo Miller, PhD /nt
[2019-02-03 19:34] VITALS: BP 109/74
--- NOTE | 2019-02-03 19:42 | NUR ---
ASSUMED CARE AT APPROX 0715. PATIENT A/O X4. DENIES PAIN. ABDOMINAL INCISION WELL APPROXIMATED WITH JUAN. ILEOSTOMY BAG SECURED, OUTPUTTING LOOSE GREEN/BROWN STOOL. PATIENT COMMUNICATES UNDERSTANDING OF EMPTYING OSTOMY BAG, VERBALIZED STEPS CORRECTLY, STATES SHE'D LIKE MORE EDUCATION REGARDING CHANGING WAFFER. HH SET UP PER CM. PATIENT AMBULATED WITH CARTON MAKING MACHINIST AROUND UNIT. FOLLOW UP WITH SURGEON ADDED TO DISCHARGE. FALL PRECAUTIONS IN PLACE. PATIENT RESTING IN BED AT CHANGE OF SHIFT.
[2019-02-04 04:58] LABS: ABSOLUTE NEUTROPHILS 3.6 thou/uL (1.4-8.2); BASOPHILS 0.5 % (0.0-2.0); EOSINOPHILS 2.6 % (0.0-3.0); HEMATOCRIT 29.6 % (37.0-47.0); HEMOGLOBIN 9.9 gm/dL (12.0-15.0); LYMPHOCYTES 18.8 % (24.0-44.0); MCHC 33.6 g/dL (28.0-37.0); MCV 92.1 fL (80.0-100.0); MONOCYTES 9.9 % (1.0-8.0); PLATELET COUNT 318 thou/uL (150-400); POLYS 68.2 % (36.0-66.0); RBC 3.21 mil/uL (4.20-5.00); RDW 13.4 % (10.5-14.5); WBC 5.3 thou/uL (4.0-11.0)
--- NOTE | 2019-02-04 05:02 | NUR ---
ASSUMED CARE OF PT AT 1915. PT ALERT AND ORIENTED X4. AMBULATES TO BATHROOM INDEPENDENTLY WITH GAIT BELT AND WALKER. C/O BACK PAIN, RELIEVED WITH LORTAB AND VOLTAREN GEL. ILEOSTOMY INTACT WITH LARGE AMOUNT OF FLATUS, AND LIQUID GREEN-BROWN STOOL. PT EMPTYING OSTOMY WITHOUT ASSIST. ANTICIPATING DISCHARGE LATER TODAY. CHECKED ON HOURLY ROUNDS.
[2019-02-04 05:09] LABS: CALCIUM 9.4 mg/dL (8.5-10.1); CREATININE 2.6 mg/dL (0.6-1.0); MAGNESIUM 2.7 mg/dL (1.8-2.4)
[2019-02-04 05:23] LABS: POTASSIUM 6.2 mmol/L (3.5-5.1)
[2019-02-04 09:30] VITALS: BP 111/66
[2019-02-04 09:42] VITALS: BP 99/50
--- NOTE | 2019-02-04 12:03 | NUR ---
cm notified that pt dc on hold rt abnormal lab, K +. will cont following as needed for dc needs.
[2019-02-04 13:17] VITALS: BP 117/69
--- NOTE | 2019-02-04 13:46 | NUR ---
ASSUMED CARES AT 0700. PT AWAKE, ALERT AND ORIENTED *4. C/O LOW BACK PAIN, ACETAMINOPHEN ADMINISTERED NEEDED. C/O DIZZINESS, LIGHT HEADEDNESS AND PALPITATIONS AFTER ALBUTERAL TREATMENT THIS AM. BP LOW (SBP 99). POTASSIUM CH THIS AM, 7.2, K-EXALATE ADMINISTERED BY NOC SHIFT, INSULIN 10UNITS, DEXTROSE 50 AND NACL 1000ML ADMINISTERED, LABS TO FOLLOW THIS AFTERNOON. PT FEELING BETTER THIS AFTERNOON, VITALS REMAIN STABLE, PT ABLE TO TOLERATE THERAPY BETTER. DC PLANS POSTPONED TO TOMORROW R/T LABS. ABDOMINAL INCISION REMAINS INTACT, JUAN INTACT, SITE ENTRY LEVEL ADMINISTRATIVE ASSISTANT. ILLEOSTOMY REMAINS INTACT AND PATENT, STOOL IS BROWN AND LIQUID. PT UNABLE TO TOLERATE THERAPY WELL TODAY. HAD AN EMESIS EPISODE AFTER BREAKFAST THIS AM. ATIVAN ONETIME DOSE ADMINISTERED THIS AM, R/T PT ANXIETY AND EMOTIONAL STATE AFTER CANCELLATION OF DC PLANS AND HER OVERALL WELL BEING. PT UP WITH 1 PERSON MIN ASSIST. Q1H VISUAL CHECKS. CALL LIGHT WITHIN REACH. FALL PRECAUTIONS IN PLACE
[2019-02-04 14:14] LABS: ALBUMIN 3.4 g/dL (3.4-5.0); CALCIUM 9.3 mg/dL (8.5-10.1); CREATININE 2.7 mg/dL (0.6-1.0); PHOSPHORUS 4.5 mg/dL (2.5-4.9)
[2019-02-04 14:15] LABS: POTASSIUM 5.2 mmol/L (3.5-5.1)
[2019-02-04 17:22] VITALS: BP 102/62
[2019-02-04 19:30] VITALS: BP 97/66
--- NOTE | 2019-02-05 02:44 | NUR ---
PT ALERT AND ORIENTED X 4. AMB TO BR WITH WALKER AND ASSIST X 1 WITHOUT DIFFICULTY. ILEOSTOMY INTACT WITH LIQUID BROWN STOOL. PT REFUSED METAMUCIL AT HS. ABD INCISION C/D/I WITH JUAN. BP 97/66 AT HS. METOPROLOL HELD. PT DENIES PAIN OR DISCOMFORT. BED ALARM ON FOR SAFETY. PT APPEARS TO BE SLEEPING ON HOURLY ROUNDS.
[2019-02-05 08:00] VITALS: BP 120/63
[2019-02-05 08:27] LABS: CALCIUM 9.4 mg/dL (8.5-10.1); CREATININE 2.3 mg/dL (0.6-1.0); POTASSIUM 5.9 mmol/L (3.5-5.1)
[2019-02-05] MEDS ORDERED: LOPRESSOR25 PO (09:39)
[2019-02-05] MEDS ORDERED: METAMUCIL FIBE3.4 GM PO (09:39)
[2019-02-05] MEDS ORDERED: VOLTAREN GEL 1100 G2 TOP (09:39)
[2019-02-05] MEDS ORDERED: CLARITIN10 MG PO (09:39)
[2019-02-05] MEDS ORDERED: SODIUM BICARBO650 M3 PO (09:39)
--- NOTE | 2019-02-05 09:54 | NUR ---
ASSUMED CARE AT 0700. PATIENT IS ALERT AND ORIENTED X4. PATIENT GONZALEZ'S, ESTHETICIAN/SPA COORDINATOR ARE EQUAL. LUNGS ARE CLEAR. ABD IS SOFT WITH BSX4. PATIENT HAS ABD INCISION WITH JUAN. ILEOSTOMY DRAINING BROWN/GREEN MUSHY STOOL. FALL AND SAFETY PROTOCOLS IN PLACE. DENIES ANY PAIN. CONTINUES TO PROGRESS TOWARDS D/C GOALS. PLAN D/C LATER TODAY. WILL CONTINUE TO MONITER.
[2019-02-05 10:36] VITALS: BP 111/66
--- NOTE | 2019-02-05 11:16 | NUR ---
DISCHARGE INSTRUCTIONS GIVEN TO PATIENT AND DAUGHTER. PATIENT VERBALIZED UNDERSTANDING OF D/C INSTRUCTIONS. LAB TO BE DRAWN BY N. PATIENT LEFT UNIT IN GOOD CONDITION VIA W/C , ALL OF HER BELONGINGS, SCRIPTS AND D/C INSTRUCTIONS ACCOMPANYED BY HER DAUGHTER. IV DC'D. ILEOSTOMY EMPTIED.
[2019-02-05 11:52] VITALS: BP 111/66
--- NOTE | 2019-02-05 12:37 | NUR ---
PT. DISCHARGING TODAY TO HOME WITH [facility] FAXED DC ORDERS/SUMMARY TO [facility] AND SPOKE WITH SJ IN ADM. SHE RECEIVED DC ORDERS AND WILL NOTIFY PT. OF TIME OF VISITS. VISITS TO START WEDNESDAY 02/07.
== END 2019-02-05 11:33 | disposition home health service (06) | DRG 948 ==
LOC: ENTRNSPT 02-05 11:21 → EDTRNSPTSTS 02-05 11:24
PROVIDERS: Hospitalist; Nurse Practitioner; Nurse Practitioner Family; ADMIT Physical Medicine & Rehabilitation
DX: R53.81 Other malaise (principal); N18.4 Chronic kidney disease, stage 4 (severe); N17.9 Acute kidney failure, unspecified; K22.70 Barrett's esophagus without dysplasia; D50.9 Iron deficiency anemia, unspecified; F32.9 Major depressive disorder, single episode, unspecified; G89.29 Other chronic pain; M54.5 Low back pain; G31.84 Mild cognitive impairment of uncertain or unknown etiology; E87.5 Hyperkalemia; E78.2 Mixed hyperlipidemia; I12.9 Hypertensive chronic kidney disease with stage 1 through stage 4 chronic kidney disease, or unspecified chronic kidney disease; E78.5 Hyperlipidemia, unspecified; E89.0 Postprocedural hypothyroidism; K63.89 Other specified diseases of intestine; D36.7 Benign neoplasm of other specified sites; Z90.49 Acquired absence of other specified parts of digestive tract; Z82.49 Family history of ischemic heart disease and other diseases of the circulatory system; Z79.899 Other long term (current) drug therapy; Z98.49 Cataract extraction status, unspecified eye; Z88.0 Allergy status to penicillin; Z88.6 Allergy status to analgesic agent
CPT/HCPCS: 10112